=== PATIENT | female | born 1975 | race Caucasian/White ===

== ENCOUNTER 2021-07-16 14:10 | Outpatient (CLI) | payer OTHER, SELFPAY ==
[2021-07-16 16:57] LABS: Basophils # 0.1 10^3/uL (0.0-0.1); Basophils % 0.8 %; Eosinophils # 0.3 10^3/uL (0.0-0.8); Eosinophils % 2.4 %; Hematocrit 40.5 % (37.0-47.0); Hemoglobin 12.7 g/dL (11.5-15.3); Lymphocytes # 4.4 10^3/uL (0.8-4.8); Mean Corpuscular HGB Conc 31.4 g/dL (30.0-36.0); Mean Corpuscular Hemoglobin 26.6 pg (28.0-34.0); Mean Corpuscular Volume 84.9 fl (81-99); Mean Platelet Volume 10.8 fL (7.4-10.4); Monocytes # 0.8 10^3/uL (0.2-0.9); Monocytes % 6.8 %; Neutrophils # 6.24 10^3/uL (1.8-7.7); Neutrophils % 52.7 %; Nucleated Red Blood Cells % 0 %; Platelet Count 252 10^3/cmm (130-400); Red Blood Count 4.77 10^6/uL (4.1-5.3); Red Cell Distribution Width 14.2 % (12.1-15.1); White Blood Count 11.9 10^3/uL (4.0-10.0)
[2021-07-16 16:58] LABS: Reticulocyte % 1.6 % (0.5-2.0)
[2021-07-16 17:04] LABS: LAB Peripheral Smear Sent for Review
[2021-07-16 17:34] LABS: Erythrocyte Sedimentation Rate 24 mm/hr (0-15)
[2021-07-16 17:41] LABS: Alanine Aminotransferase 39 U/L (0-33); Albumin Level 4.3 g/dL (3.5-5.2); Alkaline Phosphatase 122 IU/L (35-105); Anion Gap 12.1 (5-19); Aspartate Amino Transferase 36 U/L (0-32); Blood Urea Nitrogen 9 mg/dL (6-20); Calcium 8.5 mg/dL (8.5-10.5); Carbon Dioxide 23 mmol/L (22-29); Chloride 105 mmol/L (98-107); Globulin 2.8 g/dL (1.3-4.6); Glomerular Filtration Rate 78.3 mL/min (90-130); Glucose 107 mg/dL (65-115); Lactate Dehydrogenase 150 U/L (135-214); Osmolality Calculated 281 mOsm/kg (285-295); Potassium 4.1 mmol/L (3.5-5.1); Sodium 136 mmol/L (136-145); Thyroid Stimulating Hormone 2.68 uIU/mL (0.27-4.20); Total Bilirubin 0.2 mg/dL (0.15-1.2); Total Protein 7.1 g/dL (6.6-8.7)
[2021-07-16 17:43] LABS: Folate Level 15.7 ng/mL (4.8-37.3)
--- NOTE | 2021-07-16 17:46 | ONC CON_ITS ---
Dr. Shearer New Patient Note Patient: Ibeth Palacios Unit #: [id number]: [id number] Dicatated By: Aron Shearer M.D.Date of Visit: Jul 16, 2021 Onc MED New Patient/Consult Referring Physician: Kelli Patel A.P.N. Chief Complaint: Anemia. History of Present Illness: This is a 45-year-old woman with a mild anemia. She has multiple medical illnesses and she is disabled. She receives her primary care through the [facility]. She had recently relocated to this area from [place]. She had an initial visit at the [facility] with Kelli Patel on 05/20/2021. Her laboratory studies at that time included a CBC which showed hemoglobin low at 10.8 g with hematocrit 35.2%. The red cell indices were normal. The white blood cell count was 9500 and the platelet count was 221,000. Her comprehensive metabolic profile showed normal renal function, and the bilirubin and liver enzymes also were normal. She complains that she has been fatigued a lot, to the point of exhaustion. She has been having to sleep more and to take more naps. She has had limited activity related to her fibromyalgia pain, but over the past few months or has been further decline in her activity tolerance. Her ECOG score is 1. Her appetite is variable. She has had a weight gain of 15 pounds. She does not have fever, night sweats, or hot flashes. She says that she tends to feel more cold then hot. In particular, her extremities have been colder. She also was told by her boyfriend that during recent intercourse her lips turned blue. She has chest congestion, cough, and shortness of breath associated with allergies and asthma. She also has been having more trouble catching her breath with activity. She says she has been getting short of breath just tying her shoes. She has had some chest discomfort. She has had suspected cardiac arrhythmia based on episodes of dizziness/lightheadedness, weakness, and tingling in her fingers. She has postprandial nausea and she has acid reflux. She has chronic constipation. She has not recently been aware of any blood in the stool. She has some hesitancy with urination and incomplete bladder emptying. She is still menstruating, but her periods now are getting a little irregular. She has generalized fibromyalgia pain and she has chronic back pain. Recently she has been having more joint pain, mainly in the ankles, knees, and hands. She has chronic migraine, for which she has been getting Botox injections every 3 months. She has anxiety and she has chronic insomnia. She has not been feeling depressed, though. Past Medical History: Her medical history includes allergic rhinitis, anxiety/depression, asthma, borderline personality disorder, chronic migraine, fibromyalgia, gastroesophageal reflux disease, history of cardiac arrhythmia, hyperlipidemia, hypertension, inflammatory spondylopathy, irritable bowel syndrome, restless leg syndrome, sciatica, and vitamin D deficiency. Past Surgical History: Her surgical/procedural history includes dental surgery which included bone grafting, placement of loop recorder in 2019, bladder repair with mesh implant in 2018, excision of benign sweat gland tumor in 2018, and cardiac ablation procedure in 2016. Medications: Acetaminophen 1 Tablet (of 500 mg) Oral b.i.d. PRN, Albuterol Sulfate HFA 2 Puff(s) (of 108 (90 base) mcg/act) Aerosol, solution Inhalation four times a day PRN, B-12 1 Tablet (of 1000 mcg) Oral daily, Benadryl Allergy 1 Capsule (of 25 mg) Oral at bedtime, Botox Injection, Budesonide-Formoterol Fumarate 1 Puff(s) (of 80-4.5 mcg/act) Aerosol Inhalation b.i.d., Cyclobenzaprine HCl 1 Tablet (of 10 mg) Oral b.i.d. PRN, Diclofenac Sodium 4 g (of 1 %) Gel (jelly) Topical four times a day PRN, Fish Oil 2 Capsule (of 500 mg) Oral daily, Fluticasone Propionate 2 Delphi(s) (of 50 mcg/act) Suspension Nasal daily, Fluticasone-Salmeterol 1 Puff(s) (of 250-50 mcg/dose) Aerosol Powder, Breath Activated Inhalation b.i.d., Gabapentin 1 Tablet (of 600 mg) Oral t.i.d., [employer]ys Extra Strength Pack Oral PRN, Ibuprofen 4 Tablet (of 200 mg) Oral PRN, Iron (Ferrous Sulfate) (325 (65 fe) mg) Tablet Oral daily, Loratadine 1 Tablet (of 10 mg) Oral daily, Melatonin Tablet Oral PRN, Meloxicam (15 mg) Tablet Oral daily, Montelukast Sodium 1 Tablet (of 10 mg) Oral at bedtime, Mucus DM Tablet SR 12 HR Oral PRN, Omeprazole (20 mg) Tablet, enteric coated Oral b.i.d., Promethazine HCl 1 Tablet (of 25 mg) Oral t.i.d. PRN, Propranolol HCl 1 Capsule (of 80 mg) Tablet Oral daily, Rosuvastatin Calcium 0.5 Tablet (of 40 mg) Oral daily, SUMAtriptan Succinate 1 Tablet (of 100 mg) Oral b.i.d. PRN, Topiramate 1 Tablet (of 100 mg) Oral at bedtime, Vitamin C (1000 mg) Tablet Oral daily, Wixela Inhub 1 Inhalation (of 250-50 mcg/dose) Aerosol Powder, Breath Activated Inhalation b.i.d., Zinc (50 mg) Tablet Oral daily, ZyrTEC Allergy (10 mg) Tablet Oral daily Allergies: Shellfish and Surgical glue. Social History: Ms. Palacios is . She is disabled. She had smoked off and on since age 14, up to a pack to 1-1/2 packs of cigarettes daily. She quit smoking in March 2020. She has had just occasional alcohol use. Family History: Father at age 69 with complications of alcoholism. Mother is still living at age 76. She has diabetes. A maternal uncle with complications of diabetes and another maternal uncle has diabetes and coronary artery disease. A brother at age 48 with AIDS and a sister at age 56 with complications of cerebral palsy. Another sister has undergone bone marrow transplant for leukemia. A paternal aunt had ovarian cancer and a niece has been treated for rhabdomyosarcoma. Her maternal grandfather had non-Hodgkin's lymphoma and her paternal grandfather had laryngeal cancer. Review Of Symptoms: Constitutional - She has been fatigued a lot, to the point of exhaustion. Her activity had previously been limited by her fibromyalgia, and that has further declined over the past several months. Appetite has been variable. She has had a weight gain of 15 pounds. She has not had fever, night sweats, or hot flashes. She says she tends to feel more cold than hot. ECOG score is one, Eyes - Her vision has been more blurry lately, ENMT - No hearing loss, but she has tinnitus. She has allergy related sinus symptoms. No mouth sores. No sore throat or difficulty swallowing, Hematologic/Lymphatic - No abnormal bruising or bleeding, Respiratory - She has chest congestion, cough, and shortness of breath. No pleuritic pain or hemoptysis, Cardiovascular - She has had some chest discomfort. She does not complain of palpitations, but she does have suspected cardiac arrhythmia based on other symptoms including dizziness, weakness, and tingling, Gastrointestinal - She has postprandial nausea and she has acid reflux. She has chronic constipation. She has not recently been aware of any blood in the stool. Her most recent colonoscopy was a couple of years ago and her most recent EGD was prior to that, Genitourinary (F) - No dysuria or hematuria. She has hesitancy with urination and she has incomplete emptying. She has some incontinence, Musculoskeletal - She has generalized fibromyalgia pain and chronic back pain. Lately her joint pain has been worse including the ankles, knees, and hands, Integumentary - No skin rash or other skin changes, Neurologic - She has chronic migraine. She has episodes of dizziness/lightheadedness and she has tingling in her fingers, Psychiatric - She has some anxiety. She says she is currently not having significant depression. She has chronic insomnia. Vital Signs: Performed on Jul 16, 2021 16:18: 5, 4, 33.48 (HIGH), 2.13 sq.m, 68 in, 98 %, 90 /min, 16 /min, 125/80 mm(hg), 97.6 F (LOW), and 220.2 lbs (HIGH). Physical Examination: Constitutional - She does not appear acutely ill, Eyes - Sclerae nonicteric. Conjunctivae clear, ENMT - No lesions noted in the oral cavity, Neck - No mass or thyromegaly, Hematologic/Lymphatic - No cervical, clavicular, or axillary adenopathy, Respiratory - Lungs sound clear with good air movement bilaterally, Cardiovascular - Heart rhythm is regular. There is no murmur, gallop, or rub noted, Abdomen - Soft. Liver and spleen are not enlarged. There is no abdominal mass or ascites noted and there is no inguinal adenopathy, Back/Spine - There is mild tenderness throughout the spine, Extremities - No edema. She has palpable radial and dorsalis pedis pulses bilaterally, Integumentary - No rashes. No suspicious skin lesions noted, Neurologic - No focal neurologic deficits noted. Problem List: 1. Mild anemia. Etiology is uncertain. 2. She has severe fatigue, disproportionate to the severity of the anemia. 3. Hypertension. 4. Hyperlipidemia. 5. Allergic rhinitis. 6. Asthma. 7. History of cardiac arrhythmia. 8. GERD. 9. Irritable bowel syndrome. 10. Fibromyalgia. 11. Sciatica. 12. Chronic migraine. 13. Anxiety/depression. Problems Addressed with this Encounter and Plan: Patient with mild anemia. The cause is uncertain, but she has severe fatigue, which is disproportionate to the severity of the anemia. She will have additional laboratory studies today to include CBC, comprehensive metabolic profile, reticulocyte count, LDH and haptoglobin levels, sed rate, serum iron studies and ferritin, B12 and folate levels, TSH level, and a cryoglobulin assay. I we will review the blood smear. She will have further evaluation as indicated. Signed By: Aron Shearer M.D. <<Signature on File>>
[2021-07-16 19:04] LABS: Ferritin 41 ng/mL (15-150); Iron 70 ug/dL (37-145); Percent Saturation 21.6 % (20-50); Total Iron Binding Capacity 323 mcg/dl; Unsaturated Iron Binding 253 ug/dL (112-347)
[2021-07-16 19:19] LABS: Vitamin B12 1056 pg/mL (232-1245)
== END 2021-07-16 14:11 | disposition home or self-care (01) ==
PROVIDERS: Visit Provider Internal Medicine Medical Oncology
DX: D64.9 Anemia, unspecified (principal); I10 Essential (primary) hypertension; E78.5 Hyperlipidemia, unspecified; F41.9 Anxiety disorder, unspecified; F32.A Depression, unspecified; K21.9 Gastro-esophageal reflux disease without esophagitis; J45.909 Unspecified asthma, uncomplicated; Z79.899 Other long term (current) drug therapy
CPT/HCPCS: 36415; 80053; 82595; 82607; 82728; 82746; 83010; 83540; 83550; 83615; 84443; 85025; 85045; 85651; 99204

== ENCOUNTER 2021-08-21 08:59 | Outpatient (CLI) | payer OTHER, SELFPAY ==
[2021-08-21 09:38] LABS: Basophils # 0.1 10^3/uL (0.0-0.1); Basophils % 0.9 %; Eosinophils # 0.3 10^3/uL (0.0-0.8); Eosinophils % 2.6 %; Hematocrit 35.6 % (37.0-47.0); Hemoglobin 11.3 g/dL (11.5-15.3); Lymphocytes # 4.1 10^3/uL (0.8-4.8); Lymphocytes % 41.9 %; Mean Corpuscular HGB Conc 31.7 g/dL (30.0-36.0); Mean Corpuscular Hemoglobin 27.2 pg (28.0-34.0); Mean Corpuscular Volume 85.6 fl (81-99); Mean Platelet Volume 10.1 fL (7.4-10.4); Monocytes # 0.6 10^3/uL (0.2-0.9); Monocytes % 6.2 %; Neutrophils # 4.75 10^3/uL (1.8-7.7); Neutrophils % 48.1 %; Nucleated Red Blood Cells % 0 %; Platelet Count 217 10^3/cmm (130-400); Red Blood Count 4.16 10^6/uL (4.1-5.3); Red Cell Distribution Width 14.3 % (12.1-15.1); White Blood Count 9.9 10^3/uL (4.0-10.0)
[2021-08-21 10:04] LABS: Alanine Aminotransferase 47 U/L (0-33); Albumin Level 3.9 g/dL (3.5-5.2); Alkaline Phosphatase 132 IU/L (35-105); Anion Gap 14.8 (5-19); Aspartate Amino Transferase 29 U/L (0-32); Blood Urea Nitrogen 11 mg/dL (6-20); Calcium 8.7 mg/dL (8.5-10.5); Carbon Dioxide 21 mmol/L (22-29); Chloride 105 mmol/L (98-107); Ferritin 33 ng/mL (15-150); Globulin 2.9 g/dL (1.3-4.6); Glomerular Filtration Rate 77.9 mL/min (90-130); Glucose 118 mg/dL (65-115); Iron 47 ug/dL (37-145); Osmolality Calculated 284 mOsm/kg (285-295); Percent Saturation 16.6 % (20-50); Potassium 3.8 mmol/L (3.5-5.1); Sodium 137 mmol/L (136-145); Total Bilirubin 0.2 mg/dL (0.15-1.2); Total Iron Binding Capacity 283 mcg/dl; Total Protein 6.8 g/dL (6.6-8.7); Unsaturated Iron Binding 236 ug/dL (112-347)
[2021-08-21 10:18] LABS: Erythrocyte Sedimentation Rate 7 mm/hr (0-15)
--- NOTE | 2021-08-23 14:55 | ONC FU_ITS ---
Nitza Cisneros Progress Note Patient: Ibeth Palacios Unit #: [id number]: [id number] Dicatated By: Nitza Cisneros N.P.Date of Visit:Aug 21, 2021 Onc MED Follow-up/Prog Note Chief Complaint: Anemia. History of Present Illness: This is a 45-year-old woman with a mild anemia. She has multiple medical illnesses and she is disabled. She receives her primary care through the [facility]. She had recently relocated to this area from [place]. She had an initial visit at the [facility] with Kelli Patel on 05/20/2021. Her laboratory studies at that time included a CBC which showed hemoglobin low at 10.8 g with hematocrit 35.2%. The red cell indices were normal. The white blood cell count was 9500 and the platelet count was 221,000. Her comprehensive metabolic profile showed normal renal function, and the bilirubin and liver enzymes also were normal. She complains that she has been fatigued a lot, to the point of exhaustion. She has been having to sleep more and to take more naps. She has had limited activity related to her fibromyalgia pain, but over the past few months or has been further decline in her activity tolerance. Her ECOG score is 1. Her appetite is variable. She has had a weight gain of 15 pounds. She does not have fever, night sweats, or hot flashes. She says that she tends to feel more cold then hot. In particular, her extremities have been colder. She also was told by her boyfriend that during recent intercourse her lips turned blue. She has chest congestion, cough, and shortness of breath associated with allergies and asthma. She also has been having more trouble catching her breath with activity. She says she has been getting short of breath just tying her shoes. She has had some chest discomfort. She has had suspected cardiac arrhythmia based on episodes of dizziness/lightheadedness, weakness, and tingling in her fingers. She has postprandial nausea and she has acid reflux. She has chronic constipation. She has not recently been aware of any blood in the stool. She has some hesitancy with urination and incomplete bladder emptying. She is still menstruating, but her periods now are getting a little irregular. She has generalized fibromyalgia pain and she has chronic back pain. Recently she has been having more joint pain, mainly in the ankles, knees, and hands. She has chronic migraine, for which she has been getting Botox injections every 3 months. She has anxiety and she has chronic insomnia. She has not been feeling depressed, though. Patient presents today for follow-up. She states that she continues to have some fatigue. Her appetite has been good. She denies fever, chills, night sweats. No shortness of breath, cough, chest pain. She denies blood in her stool. No problems with diarrhea or constipation. Her menstrual cycles have been irregular and they are usually heavy for 2 or 3 days. She denies any urinary symptoms. She has chronic joint and bone pain. She suffers from fibromyalgia. No numbness or tingling. She has been tolerating her iron and states she has been taking it as prescribed once a day. Review Of Symptoms: see above. Past Medical History: Allergic rhinitis Anxiety/depression Asthma Borderline personality disorder Chronic migraine Fibromyalgia Gastroesophageal reflux disease History of cardiac arrhythmia Hyperlipidemia Hypertension Inflammatory spondylopathy Irritable bowel syndrome Restless leg syndrome Sciatica Vitamin D deficiency Past Surgical History: Dental surgery which included bone grafting Placement of loop recorder in 2019 Bladder repair with mesh implant in 2018 Excision of benign sweat gland tumor in 2018 Cardiac ablation procedure in 2016 Allergies: Shellfish and Surgical glue . Medications: Acetaminophen 1 Tablet (of 500 mg) Oral b.i.d. PRN Albuterol Sulfate HFA 2 Puff(s) (of 108 (90 base) mcg/act) Aerosol, solution Inhalation four times a day PRN B-12 1 Tablet (of 1000 mcg) Oral daily Benadryl Allergy 1 Capsule (of 25 mg) Oral at bedtime Botox Injection Budesonide-Formoterol Fumarate 1 Puff(s) (of 80-4.5 mcg/act) Aerosol Inhalation b.i.d. Cyclobenzaprine HCl 1 Tablet (of 10 mg) Oral b.i.d. PRN Diclofenac Sodium 4 g (of 1 %) Gel (jelly) Topical four times a day PRN Fish Oil 2 Capsule (of 500 mg) Oral daily Fluticasone Propionate 2 Amlin(s) (of 50 mcg/act) Suspension Nasal daily Fluticasone-Salmeterol 1 Puff(s) (of 250-50 mcg/dose) Aerosol Powder, Breath Activated Inhalation b.i.d. Gabapentin 1 Tablet (of 600 mg) Oral t.i.d. [employer] Extra Strength Pack Oral PRN Ibuprofen 4 Tablet (of 200 mg) Oral PRN Iron (Ferrous Sulfate) (325 (65 fe) mg) Tablet Oral daily Loratadine 1 Tablet (of 10 mg) Oral daily Melatonin Tablet Oral PRN Meloxicam (15 mg) Tablet Oral daily Montelukast Sodium 1 Tablet (of 10 mg) Oral at bedtime Mucus DM Tablet SR 12 HR Oral PRN Omeprazole (20 mg) Tablet, enteric coated Oral b.i.d. Promethazine HCl 1 Tablet (of 25 mg) Oral t.i.d. PRN Propranolol HCl 1 Capsule (of 80 mg) Tablet Oral daily Rosuvastatin Calcium 0.5 Tablet (of 40 mg) Oral daily SUMAtriptan Succinate 1 Tablet (of 100 mg) Oral b.i.d. PRN Topiramate 1 Tablet (of 100 mg) Oral at bedtime Vitamin C (1000 mg) Tablet Oral daily Wixela Inhub 1 Inhalation (of 250-50 mcg/dose) Aerosol Powder, Breath Activated Inhalation b.i.d. Zinc (50 mg) Tablet Oral daily ZyrTEC Allergy (10 mg) Tablet Oral daily Family History: Father at age 69 with complications of alcoholism. Mother is still living at age 76. She has diabetes. A maternal uncle with complications of diabetes and another maternal uncle has diabetes and coronary artery disease. A brother at age 48 with AIDS and a sister at age 56 with complications of cerebral palsy. Another sister has undergone bone marrow transplant for leukemia. A paternal aunt had ovarian cancer and a niece has been treated for rhabdomyosarcoma. Her maternal grandfather had non-Hodgkin's lymphoma and her paternal grandfather had laryngeal cancer. Social History: Ms. Suzanne is single. Ms. Palacios no longer smokes. She drinks occasionally. Ms. 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 She is disabled. She had smoked off and on since age 14, up to a pack to 1-1/2 packs of cigarettes daily. She quit smoking in March 2020. She has had just occasional alcohol use. Physical Examination: Performed on Aug 21, 2021 11:03: Height - 68.00 in, Weight - 232.2 lbs (HIGH), BSA - 2.18 sq.m, BMI - 35.31 (HIGH), Temperature - 96.5 F (LOW), Pulse - 80 /min, Respiration - 16 /min, BP - 124/82 mm(hg), O2 Sat - 99 %, Pain - 5, and Fatigue - 7. Performance Status: 1 - No physically strenuous activity, but ambulatory and able to carry out light or sedentary work (e.g. office work, light house work). (ECOG) Constitutional Alert, cooperative, oriented. Mood and affect appropriate. Appears close to chronological age. Well nourished. Well developed. Head Normocephalic; no scars. Eyes Conjunctivae and sclerae are clear and without icterus. Pupils are reactive and equal. Respiratory Lungs are clear to auscultation without rhonchi or wheezing. Cardiovascular Regular rate and rhythm of heart without murmurs, gallops or rubs. Abdomen Non-tender, non-distended, no masses, ascites or hepatosplenomegaly. Good bowel sounds. No guarding or rebound tenderness. Extremities No edema Musculoskeletal No tenderness or swelling, normal range of motion without obvious weakness. Psychiatric Alert and oriented times three. Coherent speech. Verbalizes understanding of our discussions today. Laboratory: Test performed on Aug 21, 2021 09:23 Ferritin 33 ng/mL Iron 47 mcg/dL Sodium 137 mmol/L Iron Binding Capacity (TIBC) 283 mcg/dl Potassium 3.8 mmol/L % Iron Saturation 16.6 % Chloride 105 mmol/L CO2 21 mmol/L UIBC 236 mcg/dL Anion Gap 14.8 BUN 11 mg/dL Creatinine 0.8 mg/dL Cr Clearance (Est) 149.21 mL/min eGFR 77.9 mL/min Glucose 118 mg/dL Osmolality - Calculated 284 mOsm/kg Calcium 8.7 mg/dL Protein, Total 6.8 g/dL Albumin 3.9 g/dL Globulin 2.9 g/dL Bilirubin, Total 0.2 mg/dL ALT (SGPT) 47 U/L AST (SGOT) 29 U/L Alkaline Phosphatase 132 IU/L ESR (Sed Rate) 7 mm/hr WBC 9.9 10 3/uL RBC 4.16 10 6/uL HGB 11.3 g/dL HCT 35.6 % MCV 85.6 fl MCH 27.2 pg MCHC 31.7 g/dL RDW 14.3 % Platelet Count 217 10 3/cmm MPV 10.1 fL Neutrophils 4.75 10 3/uL Lymphocytes 4.1 10 3/uL Monocytes 0.6 10 3/uL Eosinophils 0.3 10 3/uL Basophils 0.1 10 3/uL Neutrophil % 48.1 % Lymphocyte % 41.9 % Monocyte % 6.2 % Eosinophil % 2.6 % Basophils % 0.9 % NRBC % 0 % Test performed on Jul 16, 2021 16:21 Folate, Serum 15.7 ng/mL LDH (Total) 150 U/L TSH 2.68 uIU/mL Vitamin B12 1056 pg/mL Retic Count % 1.6 % Impression: 1. Mild anemia. Etiology is uncertain. 2. She has severe fatigue, disproportionate to the severity of the anemia. 3. Hypertension. 4. Hyperlipidemia. 5. Allergic rhinitis. 6. Asthma. 7. History of cardiac arrhythmia. 8. GERD. 9. Irritable bowel syndrome. 10. Fibromyalgia. 11. Sciatica. 12. Chronic migraine. 13. Anxiety/depression. Plan: Patient presents today for follow-up. She has been taking oral iron daily. Her hemoglobin is 11.3 compared to 12.7 at last visit, hematocrit 35.6 compared to 40.5 at last visit, your iron saturation is 16.6 down from 21.6, ferritin at 33 down from 41, iron at 47 down from 70 at last visit. Her vitamin B12 was checked at last visit and it was 1056. Her TSH was 2.68. There has been a slight decrease in her iron studies. Her last menstrual cycle was last week and was heavier than normal. It is suspected that this may be contributing to her anemia. Increase her iron to 2 tablets daily and return to clinic in 1 month with CBC CMP and iron studies. Signed By: Nitza Cisneros N.P. <<Signature on File>>
== END 2021-08-21 09:00 | disposition home or self-care (01) ==
LOC: ONCMED 09:05
PROVIDERS: Internal Medicine Medical Oncology; Visit Provider Nurse Practitioner Family
DX: D64.9 Anemia, unspecified (principal); I10 Essential (primary) hypertension; E78.5 Hyperlipidemia, unspecified; J45.909 Unspecified asthma, uncomplicated; K21.9 Gastro-esophageal reflux disease without esophagitis; F41.9 Anxiety disorder, unspecified; F32.A Depression, unspecified; K58.9 Irritable bowel syndrome, unspecified; J30.9 Allergic rhinitis, unspecified; R53.83 Other fatigue; Z79.899 Other long term (current) drug therapy
CPT/HCPCS: 36415; 80053; 82728; 83540; 83550; 85025; 85651; 99214

== ENCOUNTER 2021-09-22 12:05 | Outpatient (CLI) | payer OTHER, SELFPAY ==
[2021-09-22 12:34] LABS: Basophils # 0.1 10^3/uL (0.0-0.1); Basophils % 0.9 %; Eosinophils # 0.2 10^3/uL (0.0-0.8); Eosinophils % 2.4 %; Hematocrit 37.2 % (37.0-47.0); Hemoglobin 11.7 g/dL (11.5-15.3); Lymphocytes # 3.9 10^3/uL (0.8-4.8); Lymphocytes % 40.4 %; Mean Corpuscular HGB Conc 31.5 g/dL (30.0-36.0); Mean Corpuscular Hemoglobin 27.2 pg (28.0-34.0); Mean Corpuscular Volume 86.5 fl (81-99); Mean Platelet Volume 10.1 fL (7.4-10.4); Monocytes # 0.8 10^3/uL (0.2-0.9); Monocytes % 8.1 %; Neutrophils # 4.59 10^3/uL (1.8-7.7); Nucleated Red Blood Cells % 0 %; Platelet Count 195 10^3/cmm (130-400); Red Cell Distribution Width 14.2 % (12.1-15.1); White Blood Count 9.6 10^3/uL (4.0-10.0)
[2021-09-22 12:51] LABS: Alanine Aminotransferase 64 U/L (0-33); Albumin Level 3.9 g/dL (3.5-5.2); Alkaline Phosphatase 137 IU/L (35-105); Anion Gap 13.3 (5-19); Aspartate Amino Transferase 42 U/L (0-32); Blood Urea Nitrogen 12 mg/dL (6-20); Calcium 8.9 mg/dL (8.5-10.5); Carbon Dioxide 22 mmol/L (22-29); Chloride 107 mmol/L (98-107); Ferritin 47 ng/mL (15-150); Globulin 2.9 g/dL (1.3-4.6); Glomerular Filtration Rate 77.9 mL/min (90-130); Glucose 126 mg/dL (65-115); Iron 38 ug/dL (37-145); Osmolality Calculated 287 mOsm/kg (285-295); Percent Saturation 14.7 % (20-50); Potassium 4.3 mmol/L (3.5-5.1); Sodium 138 mmol/L (136-145); Total Bilirubin 0.2 mg/dL (0.15-1.2); Total Iron Binding Capacity 258 mcg/dl; Total Protein 6.8 g/dL (6.6-8.7); Unsaturated Iron Binding 220 ug/dL (112-347)
--- NOTE | 2021-09-22 15:10 | ONC FU_ITS ---
Nitza Cisneros Progress Note Patient: Ibeth Palacios Unit #: [id number]: 1975 Dicatated By: Nitza Cisneros N.P.Date of Visit:Sep 22, 2021 Onc MED Follow-up/Prog Note Chief Complaint: Anemia. History of Present Illness: This is a 45-year-old woman with a mild anemia. She has multiple medical illnesses and she is disabled. She receives her primary care through the [facility]. She had recently relocated to this area from [place]. She had an initial visit at the [facility] with Kelli Patel on 05/20/2021. Her laboratory studies at that time included a CBC which showed hemoglobin low at 10.8 g with hematocrit 35.2%. The red cell indices were normal. The white blood cell count was 9500 and the platelet count was 221,000. Her comprehensive metabolic profile showed normal renal function, and the bilirubin and liver enzymes also were normal. She complains that she has been fatigued a lot, to the point of exhaustion. She has been having to sleep more and to take more naps. She has had limited activity related to her fibromyalgia pain, but over the past few months or has been further decline in her activity tolerance. Her ECOG score is 1. Her appetite is variable. She has had a weight gain of 15 pounds. She does not have fever, night sweats, or hot flashes. She says that she tends to feel more cold then hot. In particular, her extremities have been colder. She also was told by her boyfriend that during recent intercourse her lips turned blue. She has chest congestion, cough, and shortness of breath associated with allergies and asthma. She also has been having more trouble catching her breath with activity. She says she has been getting short of breath just tying her shoes. She has had some chest discomfort. She has had suspected cardiac arrhythmia based on episodes of dizziness/lightheadedness, weakness, and tingling in her fingers. She has postprandial nausea and she has acid reflux. She has chronic constipation. She has not recently been aware of any blood in the stool. She has some hesitancy with urination and incomplete bladder emptying. She is still menstruating, but her periods now are getting a little irregular. She has generalized fibromyalgia pain and she has chronic back pain. Recently she has been having more joint pain, mainly in the ankles, knees, and hands. She has chronic migraine, for which she has been getting Botox injections every 3 months. She has anxiety and she has chronic insomnia. She has not been feeling depressed, though. Patient presents today for follow-up. She states that she continues to have extreme fatigue. Her appetite is good. She denies fever, chills, night sweats. No sinus drainage or mouth sores. She has shortness of breath with exertion. She denies cough or chest pain. No GI or problems. She denies joint or bone pain. She does have leg cramps on occasion and she has a history of migraine headaches. No numbness or paresthesias. Review Of Symptoms:Review of Systems is not available for this patient. Past Medical History: Allergic rhinitis Anxiety/depression Asthma Borderline personality disorder Chronic migraine Fibromyalgia Gastroesophageal reflux disease History of cardiac arrhythmia Hyperlipidemia Hypertension Inflammatory spondylopathy Irritable bowel syndrome Restless leg syndrome Sciatica Vitamin D deficiency Past Surgical History: Dental surgery which included bone grafting Placement of loop recorder in 2019 Bladder repair with mesh implant in 2018 Excision of benign sweat gland tumor in 2018 Cardiac ablation procedure in 2016 Allergies: Shellfish and Surgical glue . Medications: Acetaminophen 1 Tablet (of 500 mg) Oral b.i.d. PRN Albuterol Sulfate HFA 2 Puff(s) (of 108 (90 base) mcg/act) Aerosol, solution Inhalation four times a day PRN B-12 1 Tablet (of 1000 mcg) Oral daily Benadryl Allergy 1 Capsule (of 25 mg) Oral at bedtime Botox Injection Budesonide-Formoterol Fumarate 1 Puff(s) (of 80-4.5 mcg/act) Aerosol Inhalation b.i.d. Cyclobenzaprine HCl 1 Tablet (of 10 mg) Oral b.i.d. PRN Diclofenac Sodium 4 g (of 1 %) Gel (jelly) Topical four times a day PRN Fish Oil 2 Capsule (of 500 mg) Oral daily Fluticasone Propionate 2 Roosevelt(s) (of 50 mcg/act) Suspension Nasal daily Fluticasone-Salmeterol 1 Puff(s) (of 250-50 mcg/dose) Aerosol Powder, Breath Activated Inhalation b.i.d. Gabapentin 1 Tablet (of 600 mg) Oral t.i.d. GoodVideoCare Extra Strength Pack Oral PRN Ibuprofen 4 Tablet (of 200 mg) Oral PRN Iron (Ferrous Sulfate) (325 (65 fe) mg) Tablet Oral daily Loratadine 1 Tablet (of 10 mg) Oral daily Melatonin Tablet Oral PRN Meloxicam (15 mg) Tablet Oral daily Montelukast Sodium 1 Tablet (of 10 mg) Oral at bedtime Mucus DM Tablet SR 12 HR Oral PRN Omeprazole (20 mg) Tablet, enteric coated Oral b.i.d. Promethazine HCl 1 Tablet (of 25 mg) Oral t.i.d. PRN Propranolol HCl 1 Capsule (of 80 mg) Tablet Oral daily Rosuvastatin Calcium 0.5 Tablet (of 40 mg) Oral daily SUMAtriptan Succinate 1 Tablet (of 100 mg) Oral b.i.d. PRN Topiramate 1 Tablet (of 100 mg) Oral at bedtime Vitamin C (1000 mg) Tablet Oral daily Wixela Inhub 1 Inhalation (of 250-50 mcg/dose) Aerosol Powder, Breath Activated Inhalation b.i.d. Zinc (50 mg) Tablet Oral daily ZyrTEC Allergy (10 mg) Tablet Oral daily Family History: Father at age 69 with complications of alcoholism. Mother is still living at age 76. She has diabetes. A maternal uncle with complications of diabetes and another maternal uncle has diabetes and coronary artery disease. A brother at age 48 with AIDS and a sister at age 56 with complications of cerebral palsy. Another sister has undergone bone marrow transplant for leukemia. A paternal aunt had ovarian cancer and a niece has been treated for rhabdomyosarcoma. Her maternal grandfather had non-Hodgkin's lymphoma and her paternal grandfather had laryngeal cancer. Social History: Ms. Palacios is single. Ms. Palacios no longer smokes. She drinks occasionally. Ms. Palacios reports contact with the following hazardous materials: [facility]. She is disabled. She had smoked off and on since age 14, up to a pack to 1-1/2 packs of cigarettes daily. She quit smoking in March 2020. She has had just occasional alcohol use. Physical Examination: Performed on Sep 22, 2021 14:06: Height - 68.00 in, Weight - 234.8 lbs (HIGH), BSA - 2.19 sq.m, BMI - 35.70 (HIGH), Temperature - 98.6 F, Pulse - 79 /min, Respiration - 16 /min, BP - 138/86 mm(hg), O2 Sat - 99 %, Pain - 4, and Fatigue - 6. Performance Status: 1 - No physically strenuous activity, but ambulatory and able to carry out light or sedentary work (e.g. office work, light house work). (ECOG) Constitutional Alert, cooperative, oriented. Mood and affect appropriate. Appears close to chronological age. Well nourished. Well developed. Head Normocephalic; no scars. Respiratory Lungs are clear to auscultation without rhonchi or wheezing. Cardiovascular Regular rate and rhythm of heart without murmurs, gallops or rubs. Abdomen Non-tender, non-distended, no masses, ascites or hepatosplenomegaly. Good bowel sounds. No guarding or rebound tenderness. Extremities No visible deformities, no cyanosis, clubbing or edema. Pulses 3+ and equal bilaterally. Musculoskeletal No tenderness or swelling, normal range of motion without obvious weakness. Psychiatric Alert and oriented times three. Coherent speech. Verbalizes understanding of our discussions today. Laboratory: Test performed on Sep 22, 2021 12:22 Ferritin 47 ng/mL Iron 38 mcg/dL Sodium 138 mmol/L Iron Binding Capacity (TIBC) 258 mcg/dl Potassium 4.3 mmol/L % Iron Saturation 14.7 % Chloride 107 mmol/L CO2 22 mmol/L UIBC 220 mcg/dL Anion Gap 13.3 BUN 12 mg/dL Creatinine 0.8 mg/dL Cr Clearance (Est) 150.88 mL/min eGFR 77.9 mL/min Glucose 126 mg/dL Osmolality - Calculated 287 mOsm/kg Calcium 8.9 mg/dL Protein, Total 6.8 g/dL Albumin 3.9 g/dL Globulin 2.9 g/dL Bilirubin, Total 0.2 mg/dL ALT (SGPT) 64 U/L AST (SGOT) 42 U/L Alkaline Phosphatase 137 IU/L WBC 9.6 10 3/uL RBC 4.30 10 6/uL HGB 11.7 g/dL HCT 37.2 % MCV 86.5 fl MCH 27.2 pg MCHC 31.5 g/dL RDW 14.2 % Platelet Count 195 10 3/cmm MPV 10.1 fL Neutrophils 4.59 10 3/uL Lymphocytes 3.9 10 3/uL Monocytes 0.8 10 3/uL Eosinophils 0.2 10 3/uL Basophils 0.1 10 3/uL Neutrophil % 48.0 % Lymphocyte % 40.4 % Monocyte % 8.1 % Eosinophil % 2.4 % Basophils % 0.9 % NRBC % 0 % Test performed on Aug 21, 2021 09:23 ESR (Sed Rate) 7 mm/hr Test performed on Jul 16, 2021 16:21 Folate, Serum 15.7 ng/mL LDH (Total) 150 U/L TSH 2.68 uIU/mL Vitamin B12 1056 pg/mL Retic Count % 1.6 % Impression: 1. Mild anemia. Etiology is uncertain. 2. She has severe fatigue, disproportionate to the severity of the anemia. 3. Hypertension. 4. Hyperlipidemia. 5. Allergic rhinitis. 6. Asthma. 7. History of cardiac arrhythmia. 8. GERD. 9. Irritable bowel syndrome. 10. Fibromyalgia. 11. Sciatica. 12. Chronic migraine. 13. Anxiety/depression. Plan: Labs were reviewed with patient her hemoglobin is within normal limits at 11.7 and hematocrit is 37.2 which is also normal. Her iron is within normal range at 38 and her percent saturation is slightly low at 14.7%. She states she has been taking her iron 2 tablets/day but she cannot notice a difference in her level of fatigue. I am not at that this is because of her fatigue and she has a follow-up appointment with her primary care provider later this week and is going to discuss her level of fatigue with her. She has been having elevated liver enzymes with AST at 42 and the ALT at 64 her alkaline phosphatase is mildly elevated at 137. Explained to patient this could be due to medications that she is currently taking including but not limited to statin drugs. We will continue to monitor for now. If elevation continues may consider an ultrasound of the liver. Patient will return to the clinic in 2 months with CBC, CMP, and iron studies. Signed By: Nitza Cisneros N.P. <<Signature on File>>
== END 2021-09-22 12:06 | disposition home or self-care (01) ==
LOC: ONCMED 12:07
PROVIDERS: Visit Provider Nurse Practitioner Family
DX: D64.9 Anemia, unspecified (principal); R94.5 Abnormal results of liver function studies; I10 Essential (primary) hypertension; Z87.891 Personal history of nicotine dependence; E78.5 Hyperlipidemia, unspecified; J45.909 Unspecified asthma, uncomplicated; Z86.79 Personal history of other diseases of the circulatory system; K21.9 Gastro-esophageal reflux disease without esophagitis; K58.9 Irritable bowel syndrome, unspecified; M79.7 Fibromyalgia; M54.30 Sciatica, unspecified side; G43.709 Chronic migraine without aura, not intractable, without status migrainosus; F41.8 Other specified anxiety disorders
CPT/HCPCS: 36415; 80053; 82728; 83540; 83550; 85025; 99214

== ENCOUNTER 2021-11-04 16:32 | Emergency (ER) | payer OTHER, SELFPAY ==
[2021-11-04 16:50] VITALS: BP 122/85; PULSE 86; RESP 18; TEMP 37.1; O2SAT 97
--- NOTE | 2021-11-04 17:02 | ED_ITS ---
HPI - Extremity Problem General: Chief complaint: Extremity Problem,Nontraumatic Stated complaint: sting on right foot Time Seen by Provider: 11/04/21 17:02 History of Present Illness: 46-year-old female comes in today with complaints of swelling and tenderness to the distal right foot. Patient reports being stung several times by insects over the last week. The last time she had to her right foot 2 days ago. Since then she has had increased swelling and tenderness with some itching and discoloration of the foot. Patient has a history of fibromyalgia, asthma, GERD, anxiety disorder. Associated symptoms: Deny chest pain or fever(s) Review of Systems General: Reports: 10 or more systems reviewed and unremarkable except in HPI and below Const: Denies: fever(s) Card: Denies: chest pain Resp: Denies: dyspnea GI: Denies: nausea Musc: Reports: extremity pain and extremity swelling Skin/Breast: Reports: erythema and new lesions [facility] ED PFSH: Medical History (Updated 11/04/21 @ 18:23 by REY Deras) Asthma Costochondritis Fibromyalgia Surgical History (Updated 04/17/21 @ 14:44 by Simon Raymond MD) History of cardiac radiofrequency ablation (RFA) Female Reproductive History: Date of last menstrual period: 10/15/21 Physical Exam Const: COMMON NORMALS: alert HENMT: COMMON NORMALS: normocephalic HEAD & SCALP: normocephalic Neck/C-Spine: COMMON NORMALS: full ROM Resp: COMMON NORMALS: normal respiratory effort Cardio: COMMON NORMALS: regular rate RATE: regular rate Extremity: RIGHT LOWER EXTREMITY: Yes foot & digits (Areas of abrasion from scratching, swelling, mild ecchymosis) Right foot and digits: Yes inspection, Yes palpation, Yes ROM and Yes neurovascular exam Neuro: SENSORIUM/ORIENTATION: Yes alert Course Vital Signs: Vital signs: Vital Signs Temperature 98.7 F 11/04/21 16:50 Pulse Rate 86 11/04/21 16:50 Respiratory Rate 18 11/04/21 16:50 Blood Pressure 122/85 11/04/21 16:50 Pulse Oximetry 97 11/04/21 16:50 MDM - Extremity (Nontraumatic) Medical Decision Making Patient presents with some swelling and discomfort to the right lower extremity. On exam we note several crusty lesions with surrounding swelling to the foot and ankle area. Mild ecchymosis is noted. Mild erythema is also noted. Vital signs are normal. Differential diagnosis includes local reaction insect bite, DVT, cellulitis, PVD. Ultrasound for DVT was negative. I feel the patient probably most likely has a local reaction to the insect bite. But we will go ahead and cover for secondary infection. Patient be started on Augmentin 1 tablet twice a day for 7 days. Patient was also given some steroids to, help with the swelling. Patient was instructed to try to keep the leg elevated until the swelling resolves. Hydroxyzine was also prescribed to help with itching. Patient reported understanding of care plan and need for follow-up or return to the ER for worsening symptoms. Lab Data Radiology Impressions Venous Duplex 11/04/21 17:07 IMPRESSION: No evidence of deep vein thrombosis. Discharge Plan Discharge Patient Disposition: Home Clinical Impression: Infected insect bite of foot Qualifiers: Encounter type: initial encounter Laterality: right Qualified Code(s): S90.861A - Insect bite (nonvenomous), right foot, initial encounter Condition: Stable Prescriptions: New amoxicillin-pot clavulanate 875-125 mg tablet 1 tab PO BID Qty: 14 0RF hydroxyzine HCl 25 mg tablet 25 mg PO Q6H PRN (Reason: itching) Qty: 14 0RF prednisone 20 mg tablet 20 mg PO BID 5 Days Qty: 10 0RF mupirocin 2 % ointment 1 applic topical BID Qty: 22 0RF Rx Instructions: apply to lesions until healed No Action gabapentin 300 mg capsule 300 mg PO TID 0RF tizanidine 4 mg tablet 4 mg PO TID PRN0RF topiramate 100 mg bhaskar bautista,ER 24hr dose pack 100 mg PO DAILY 0RF montelukast [Singulair] 10 mg tablet 10 mg PO DAILY 0RF loratadine [Claritin] 10 mg tablet 10 mg PO DAILY 0RF promethazine 25 mg tablet 25 mg PO TID PRN0RF omeprazole 20 mg capsule,delayed release(DR/EC) 20 mg PO DAILY 0RF rosuvastatin 40 mg tablet 40 mg PO DAILY 0RF melatonin 3 mg capsule 6 mg PO .hs 0RF propranolol 80 mg capsule,extended release 24 hr 80 mg PO DAILY 0RF meloxicam 15 mg tablet 15 mg PO DAILY 0RF sumatriptan succinate 50 mg tablet See Rx Instructions PO .COMPLEX 0RF Rx Instructions: take 1 tab at onset of headache; if no relief may repeat 1 tab after at least 2 hrs; max = 4 tabs/24 hr PO albuterol sulfate 90 mcg/actuation aerosol powdr breath activated 1 inh inhalation QID 0RF fluticasone propionate [Flonase Allergy Relief] 50 mcg/actuation spray,suspension 1 spray intranasal DAILY 0RF Rx Instructions: administer into each nostril prednisone 20 mg tablet 60 mg PO DAILY Qty: 15 0RF Discharge Orders: Discharge ED (Routine); Ordered 11/04/21 Ordered By: Dariusz Olmedo Discharge Diet: Usual diet Discharge Activity: Increase activity as tolerated Patient Instructions: Cellulitis (ED) Activity Restrictions/Additional Instructions: Home and rest. Elevate foot until swelling resolves. Take antibiotics and steroid as directed. Drink plenty of water with medications. Use hydroxyzine for breakthrough itching. Use mupirocin ointment to each scabbed lesion until healed. Follow-up with primary care in 3 days as needed for recheck. Return to ER for new concerns. 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
--- NOTE | 2021-11-04 17:07 | USR_ITS ---
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 No HX dvt. This exam is negative for dvt in rle; Additional info: R/O dvt, distal swelling and pain TECHNIQUE: Imaging protocol: Real-time Duplex ultrasound of the Right Lower Extremity with 2-D pennington scale, color Doppler flow and spectral waveform analysis with image documentation. Limited exam was focused on the right lower extremity veins. COMPARISON: No relevant prior studies available. FINDINGS: Right deep veins: Unremarkable. The common femoral, femoral, proximal profunda femoral and popliteal veins are patent without thrombus. Normal Doppler waveforms. Normal compressibility and/or augmentation response. Right superficial veins: Unremarkable. Saphenofemoral junction is patent without thrombus. Soft tissues: Unremarkable. US/[place] [id number] IMPRESSION: No evidence of deep vein thrombosis.
[2021-11-04] MEDS: amoxicillin-clav 875-125 mg Tablet 1 TAB PO (18:45)
[2021-11-04] MEDS: dexamethasone 10 mg/mL INJ IM (18:46)
== END 2021-11-04 19:04 | disposition home or self-care (01) ==
PROVIDERS: Emergency Provider Nurse Practitioner Family
DX: S90.861A Insect bite (nonvenomous), right foot, initial encounter (principal); W57.XXXA Bitten or stung by nonvenomous insect and other nonvenomous arthropods, initial encounter; M79.661 Pain in right lower leg
CPT/HCPCS: 93971; 96372; 99283; J1100

== ENCOUNTER 2021-12-03 13:35 | Oncology outpatient (recurring) (ONCR) | payer OTHER, SELFPAY ==
[2021-12-03 13:52] LABS: Basophils # 0.1 10^3/uL (0.0-0.1); Basophils % 0.9 %; Eosinophils # 0.3 10^3/uL (0.0-0.8); Eosinophils % 3.4 %; Hematocrit 38.1 % (37.0-47.0); Hemoglobin 13.1 g/dL (11.5-15.3); Lymphocytes # 4.7 10^3/uL (0.8-4.8); Lymphocytes % 52.3 %; Mean Corpuscular HGB Conc 34.4 g/dL (30.0-36.0); Mean Corpuscular Hemoglobin 28.2 pg (28.0-34.0); Mean Corpuscular Volume 81.9 fl (81-99); Monocytes # 0.7 10^3/uL (0.2-0.9); Monocytes % 7.5 %; Neutrophils % 35.8 %; Nucleated Red Blood Cells % 0 %; Platelet Count 227 10^3/cmm (130-400); Red Blood Count 4.65 10^6/uL (4.1-5.3); Red Cell Distribution Width 13.3 % (12.1-15.1); White Blood Count 8.9 10^3/uL (4.0-10.0)
[2021-12-03 14:15] LABS: Alanine Aminotransferase 72 U/L (0-33); Alkaline Phosphatase 97 IU/L (35-105); Anion Gap 18.2 (5-19); Aspartate Amino Transferase 39 U/L (0-32); Blood Urea Nitrogen 10 mg/dL (6-20); Carbon Dioxide 19 mmol/L (22-29); Chloride 107 mmol/L (98-107); Ferritin 82 ng/mL (15-150); Globulin 2.8 g/dL (1.3-4.6); Glucose 138 mg/dL (65-115); Iron 76 ug/dL (37-145); Osmolality Calculated 291 mOsm/kg (285-295); Percent Saturation 30.6 % (20-50); Potassium 4.2 mmol/L (3.5-5.1); Sodium 140 mmol/L (136-145); Total Bilirubin 0.2 mg/dL (0.15-1.2); Total Iron Binding Capacity 248 mcg/dl; Total Protein 6.8 g/dL (6.6-8.7); Unsaturated Iron Binding 172 ug/dL (112-347)
== END 2021-12-03 23:59 | disposition home or self-care (01) ==
PROVIDERS: Visit Provider Nurse Practitioner Family
DX: D64.9 Anemia, unspecified (principal); R74.01 Elevation of levels of liver transaminase levels; Z79.899 Other long term (current) drug therapy
CPT/HCPCS: 80053; 82728; 83540; 83550; 85025; 99214

== ENCOUNTER 2022-03-08 12:40 | Oncology outpatient (recurring) (ONCR) | payer OTHER, SELFPAY ==
[2022-03-08 13:51] LABS: Basophils # 0.1 10^3/uL (0.0-0.1); Basophils % 0.8 %; Eosinophils # 0.2 10^3/uL (0.0-0.8); Eosinophils % 1.8 %; Hematocrit 41.7 % (37.0-47.0); Hemoglobin 13.8 g/dL (11.5-15.3); Lymphocytes # 4.9 10^3/uL (0.8-4.8); Lymphocytes % 52.7 %; Mean Corpuscular HGB Conc 33.1 g/dL (30.0-36.0); Mean Corpuscular Volume 84.6 fl (81-99); Mean Platelet Volume 10.3 fL (7.4-10.4); Monocytes # 0.6 10^3/uL (0.2-0.9); Monocytes % 6.3 %; Neutrophils # 3.53 10^3/uL (1.8-7.7); Neutrophils % 38.3 %; Nucleated Red Blood Cells % 0 %; Platelet Count 251 10^3/cmm (130-400); Red Blood Count 4.93 10^6/uL (4.1-5.3); Red Cell Distribution Width 12.8 % (12.1-15.1); White Blood Count 9.2 10^3/uL (4.0-10.0)
[2022-03-08 14:17] LABS: Alanine Aminotransferase 42 U/L (0-33); Albumin Level 4.2 g/dL (3.5-5.2); Alkaline Phosphatase 107 U/L (35-105); Anion Gap 14.7 (5-19); Aspartate Amino Transferase 26 U/L (0-32); Blood Urea Nitrogen 9 mg/dL (6-20); Calcium 9.4 mg/dL (8.5-10.5); Carbon Dioxide 24 mmol/L (22-29); Chloride 101 mmol/L (98-107); Globulin 2.5 g/dL (1.3-4.6); Glomerular Filtration Rate 60.2 mL/min (90-130); Glucose 112 mg/dL (65-115); Osmolality Calculated 281 mOsm/kg (285-295); Potassium 3.7 mmol/L (3.5-5.1); Sodium 136 mmol/L (136-145); Total Bilirubin 0.2 mg/dL (0.15-1.2); Total Protein 6.7 g/dL (6.6-8.7)
[2022-03-08 14:39] LABS: Ferritin 125 ng/mL (15-150); Iron 66 ug/dL (37-145); Total Iron Binding Capacity 264 mcg/dl; Unsaturated Iron Binding 198 ug/dL (112-347)
== END 2022-04-05 23:59 | disposition home or self-care (01) ==
PROVIDERS: Nurse Practitioner; PCP Nurse Practitioner; Visit Provider Internal Medicine Medical Oncology
DX: D64.9 Anemia, unspecified (principal)
CPT/HCPCS: 80053; 82728; 83540; 83550; 85025; 99213

== ENCOUNTER 2022-05-07 09:45 | Oncology outpatient (recurring) (ONCR) | payer OTHER, SELFPAY ==
[2022-05-07 10:24] LABS: Basophils # 0.1 10^3/uL (0.0-0.1); Basophils % 1.3 %; Eosinophils # 0.3 10^3/uL (0.0-0.8); Hematocrit 38.2 % (37.0-47.0); Hemoglobin 12.8 g/dL (11.5-15.3); Lymphocytes % 43.7 %; Mean Corpuscular HGB Conc 33.5 g/dL (30.0-36.0); Mean Corpuscular Hemoglobin 28.8 pg (28.0-34.0); Mean Corpuscular Volume 85.8 fl (81-99); Mean Platelet Volume 10.3 fL (7.4-10.4); Monocytes # 0.7 10^3/uL (0.2-0.9); Monocytes % 7.9 %; Neutrophils # 3.98 10^3/uL (1.8-7.7); Neutrophils % 43.9 %; Nucleated Red Blood Cells % 0 %; Platelet Count 220 10^3/cmm (130-400); Red Blood Count 4.45 10^6/uL (4.1-5.3); Red Cell Distribution Width 13.3 % (12.1-15.1); White Blood Count 9.1 10^3/uL (4.0-10.0)
[2022-05-07 10:43] LABS: Alanine Aminotransferase 47 U/L (0-33); Albumin Level 3.9 g/dL (3.5-5.2); Alkaline Phosphatase 94 U/L (35-105); Anion Gap 12.9 (5-19); Aspartate Amino Transferase 32 U/L (0-32); Blood Urea Nitrogen 8 mg/dL (6-20); Calcium 8.7 mg/dL (8.5-10.5); Carbon Dioxide 23 mmol/L (22-29); Chloride 104 mmol/L (98-107); Ferritin 112 ng/mL (15-150); Globulin 2.8 g/dL (1.3-4.6); Glucose 106 mg/dL (65-115); Iron 61 ug/dL (37-145); Osmolality Calculated 281 mOsm/kg (285-295); Percent Saturation 23.2 % (20-50); Potassium 3.9 mmol/L (3.5-5.1); Sodium 136 mmol/L (136-145); Total Bilirubin 0.4 mg/dL (0.15-1.2); Total Iron Binding Capacity 262 mcg/dl; Total Protein 6.7 g/dL (6.6-8.7); Unsaturated Iron Binding 201 ug/dL (112-347)
== END 2022-06-05 23:59 | disposition home or self-care (01) ==
PROVIDERS: PCP Nurse Practitioner; Visit Provider Internal Medicine Medical Oncology
DX: D50.9 Iron deficiency anemia, unspecified (principal); Z79.899 Other long term (current) drug therapy
CPT/HCPCS: 36415; 80053; 82728; 83540; 83550; 85025; 99213

== ENCOUNTER 2022-10-21 08:40 | Outpatient (CLI) | payer OTHER, SELFPAY ==
--- NOTE | 2022-10-21 09:04 | MM_ITS ---
WS: [id number] Bilateral screening 3D tomosynthesis digital mammogram, 10/21/2022 Clinical Data: SCREENING Comparison: 12/01/2020, 05/20/2020, 01/08/2019, 11/29/2017, 11/11/2017. Findings: The breast parenchymal pattern shows fat replacement. No spiculated masses or clustered calcification s are seen. There are no secondary signs of carcinoma. MM/[place] [id number] Impression: 1. Negative bilateral mammogram unchanged. 2. Recommend annual screening mammograms. BIRADS: 1-Negative FOLLOW UP: 1 Year Follow-up The CAD cashier or checker stock clerk was used.
== END 2022-10-21 08:41 | disposition home or self-care (01) ==
LOC: RAD 08:48
PROVIDERS: PCP Nurse Practitioner; Visit Provider Nurse Practitioner
DX: Z12.31 Encounter for screening mammogram for malignant neoplasm of breast (principal)
CPT/HCPCS: 77063; 77067

== ENCOUNTER 2023-02-10 12:06 | Emergency (ER) | payer OTHER, SELFPAY ==
[2023-02-10 12:09] VITALS: BP 165/108; PULSE 108; RESP 18; TEMP 36.6; O2SAT 97; BMI 29.5
--- NOTE | 2023-02-10 12:14 | XRR_ITS ---
PROCEDURE INFORMATION: Exam: XR Chest Exam date and time: 02/10/2023 12:21 PM Age: 47 years old Clinical indication: Cough and dyspnea; Prior surgery; Surgery date: 6+ months; Surgery type: Loop recorder; Patient HX: Allergic reaction; Additional info: Dyspnea/cough TECHNIQUE: Imaging protocol: Radiologic exam of the chest. Views: 1 view. COMPARISON: No relevant prior studies available. FINDINGS: Lungs: There is no consolidation. Scattered tiny radiodense nodules are seen in both lungs suggesting healed granulomas. There is no consolidation. Pleural spaces: There is no pleural effusion or pneumothorax. Heart/Mediastinum: Cardiomediastinal contours are unremarkable. Bones/joints: Bones are unremarkable. XR/XR chest 1V portable [id number] IMPRESSION: No acute findings.
[2023-02-10 12:23] LABS: Basophils # 0.1 10^3/uL (0.0-0.1); Basophils % 0.9 %; Eosinophils # 0.2 10^3/uL (0.0-0.8); Eosinophils % 1.7 %; Hematocrit 41.6 % (36-47); Lymphocytes # 4.6 10^3/uL (0.8-4.8); Mean Corpuscular HGB Conc 32.9 g/dL (30-55); Mean Corpuscular Hemoglobin 27.9 pg (27-33); Mean Corpuscular Volume 84.7 fl (85-98); Mean Platelet Volume 10.6 fL (7.4-10.4); Monocytes # 0.7 10^3/uL (0.2-0.9); Neutrophils # 5.63 10^3/uL (1.8-7.7); Neutrophils % 50.1 %; Nucleated Red Blood Cells % 0 %; Platelet Count 222 10^3/cmm (157-399); Red Blood Count 4.91 10^6/uL (3.85-5.65); Red Cell Distribution Width 13.2 % (12.1-15.1); White Blood Count 11.22 10^3/uL (3.29-11.43)
[2023-02-10] MEDS: famotidine 20 mg/2 mL INJ 40 MG IVP (12:26)
[2023-02-10] MEDS: dexamethasone 10 mg/mL INJ IVP (12:28)
[2023-02-10 12:30] VITALS: BP 159/106; PULSE 108; RESP 17; O2SAT 100
--- NOTE | 2023-02-10 12:33 | W.ED.ALLEREA ---
HPI - Allergic Reaction General: Chief complaint: Allergic Reaction Stated complaint: allergic reaction Time Seen by Provider: 02/10/23 12:10 Source: patient Mode of arrival: ambulatory History of Present Illness: HPI narrative: 47-year-old female presents emergency room after insect bite. 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 She was stung on the chin several times last evening she has had more swelling in the submandibular space and feels like it is tracking down across the anterior neck. She was given IV Benadryl had side effects from that and subsequently was given epi now is having some shakes. Onset (ago): hour(s) Exposure: insect bite Associated symptoms: Deny abdominal pain, difficulty breathing, dysphagia, dizziness, facial swelling, hoarseness, itching, lip swelling, nausea, rash, tongue swelling or vomiting Treatment prior to arrival: benadryl and epinephrine Review of Systems Const: Denies: fever(s), chills, fatigue or malaise ENMT: Denies: hoarseness Card: Denies: chest pain, edema, dyspnea on exertion or orthopnea Resp: Denies: dyspnea, productive cough or non-productive cough GI: Denies: abdominal pain, nausea, vomiting or dysphagia : Denies: flank pain, difficulty voiding, dysuria, urinary frequency or urinary urgency Skin/Breast: Denies: rash or pruritus Neuro: Denies: dizziness All/Imm: Denies: tongue swelling or facial swelling PFSH ED PFSH: Medical History Anemia Asthma Costochondritis Fibromyalgia Surgical History History of cardiac radiofrequency ablation (RFA) Family History Family/Other Cancer Ovarian, multiple myeloma, laryngeal, abdominal, non-hodgkin's lymphoma Sister Cancer Brain, leukemia Other Chronic kidney disease (CKD) Diabetes Hyperlipidemia Hypertension Lung disease Psychiatric illness Stroke Denies family history of CAD (coronary artery disease) Clotting disorder Dementia Suicide Anesthesia complication Bleeding disorder Social History Smoking and tobacco status: former smoker (smoked x 30+ years) Alcohol intake: current Alcohol intake frequency: holidays/special occasions only Physical Exam Const: GENERAL APPEARANCE: cooperative and comfortable ORIENTATION/CONSCIOUSNESS: Yes awake, Yes oriented to person, Yes oriented to place and Yes oriented to time HENMT: COMMON NORMALS: normocephalic, atraumatic and hearing grossly normal bilaterally HEAD & SCALP: normocephalic and atraumatic OTHER: Swelling across the chin with some mild edema tracking in the anterior neck no hives Resp: COMMON NORMALS: normal respiratory effort, No retractions, No use of accessory muscles and clear to auscultation bilaterally AUSCULTATION: clear to auscultation bilaterally Cardio: COMMON NORMALS: regular rate, regular rhythm and No murmurs present (Cardio) RATE: regular rate RHYTHM: regular rhythm GI: COMMON NORMALS: Soft to palpation and No hepatosplenomegaly present AUSCULTATION: Yes normoactive bowel sounds PALPATION: Yes Soft to palpation, No Tenderness to palpation present (GI), No Guarding due to palpation present (GI) and Yes No hepatosplenomegaly present Extremity: COMMON NORMALS: normal to inspection, capillary refill normal, no clubbing, cyanosis or edema, no calf tenderness and no pedal edema Neuro: SENSORIUM/ORIENTATION: Yes oriented to person, Yes oriented to place and Yes oriented to time Skin: OTHER: 2-3 bites on the inner aspect of the right upper arm localized swelling no hives Course Vital Signs: Vital signs: Vital Signs Temperature 97.8 F 02/10/23 12:09 Pulse Rate 108 H 02/10/23 12:30 Respiratory Rate 17 02/10/23 12:30 Blood Pressure 159/106 02/10/23 12:30 Pulse Oximetry 100 02/10/23 12:30 Oxygen Delivery Me thod Room Air 02/10/23 12:30 MDM - Allergic Reaction Medical Decision Making No stridor no wheezing some soft tissue swelling. I think the symptoms she experienced when she got the IV Benadryl by EMS were side effects would not consider these an allergy. She did get jittery as well I think some of that may have been anxiety surrounding entire event as well as then receiving epinephrine after that. Recommend steroid taper beginning tomorrow continue cetirizine 10 mg twice daily Medical Records I reviewed the patient's medical records. Lab Data I reviewed the patient's lab results. 02/10/23 12:05 02/10/23 12:05 Laboratory Results WBC 11.22 10^3/uL (3.29-11.43) 02/10/23 12:05 RBC 4.91 10^6/uL (3.85-5.65) 02/10/23 12:05 Hgb 13.70 g/dL (11.27-16.99) 02/10/23 12:05 Hct 41.6 % (36-47) 02/10/23 12:05 MCV 84.7 fl (85-98) L 02/10/23 12:05 MCH 27.9 pg (27-33) 02/10/23 12:05 MCHC 32.9 g/dL (30-55) 02/10/23 12:05 RDW 13.2 % (12.1-15.1) 02/10/23 12:05 Plt Count 222 10^3/cmm (157-399) 02/10/23 12:05 MPV 10.6 fL (7.4-10.4) H 02/10/23 12:05 Neut % (Auto) 50.1 % 02/10/23 12:05 Lymph % (Auto) 41.0 % 02/10/23 12:05 [place] % (Auto) 6.0 % 02/10/23 12:05 Eos % (Auto) 1.7 % 02/10/23 12:05 Baso % (Auto) 0.9 % 02/10/23 12:05 Neut # (Auto) 5.63 10^3/uL (1.8-7.7) 02/10/23 12:05 Lymph # (Auto) 4.6 10^3/uL (0.8-4.8) 02/10/23 12:05 [place] # (Auto) 0.7 10^3/uL (0.2-0.9) 02/10/23 12:05 Eos # (Auto) 0.2 10^3/uL (0.0-0.8) 02/10/23 12:05 Baso # (Auto) 0.1 10^3/uL (0.0-0.1) 02/10/23 12:05 Nucleated RBC % (auto) 0 % 02/10/23 12:05 Nucleated RBCs # 0.0 /100WBC 02/10/23 12:05 Sodium 137 mmol/L (136-145) 02/10/23 12:05 Potassium 3.7 mmol/L (3.5-5.1) 02/10/23 12:05 Chloride 103 mmol/L (98-107) 02/10/23 12:05 Carbon Dioxide 23 mmol/L (22-29) 02/10/23 12:05 Anion Gap 14.7 (5-19) 02/10/23 12:05 BUN 11 mg/dL (6-20) 02/10/23 12:05 Creatinine 0.8 mg/dL (0.5-0.9) 02/10/23 12:05 GFR Calculation 77.6 mL/min (90-130) L 02/10/23 12:05 Glucose 102 mg/dL (65-115) 02/10/23 12:05 Calculated Osmolality 284 mOsm/kg (285-295) L 02/10/23 12:05 Calcium 8.9 mg/dL (8.5-10.5) 02/10/23 12:05 Total Bilirubin 0.3 mg/dL (0.15-1.2) 02/10/23 12:05 AST 17 U/L (0-32) 02/10/23 12:05 ALT 23 U/L (0-33) 02/10/23 12:05 Alkaline Phosphatase 90 U/L (35-105) 02/10/23 12:05 Total Protein 7.3 g/dL (6.6-8.7) 02/10/23 12:05 Albumin 4.4 g/dL (3.5-5.2) 02/10/23 12:05 Globulin 2.9 g/dL (1.3-4.6) 02/10/23 12:05 Discharge Plan Discharge Patient Disposition: Home Clinical Impression: Bee sting reaction Condition: Stable Prescriptions: New Medrol (David) 4 mg tablets,dose pack See Rx Instructions .ROUTE .COMPLEX Qty: 21 0RF Rx Instructions: orally per package directions No Action gabapentin 300 mg capsule 300 mg PO TID topiramate 100 mg cap,sprinkle,ER 24hr dose pack 100 mg PO DAILY montelukast [Singulair] 10 mg tablet 10 mg PO DAILY loratadine [Claritin] 10 mg tablet 10 mg PO DAILY promethazine 25 mg tablet 25 mg PO TID PRN (Reason: Nausea) omeprazole 20 mg capsule,delayed release(DR/EC) 20 mg PO DAILY rosuvastatin 40 mg tablet 40 mg PO DAILY melatonin 3 mg capsule 6 mg PO BEDTIME propranolol 80 mg capsule,extended release 24 hr 80 mg PO DAILY meloxicam 15 mg tablet 15 mg PO DAILY sumatriptan succinate 50 mg tablet See Rx Instructions PO .COMPLEX Rx Instructions: take 1 tab at onset of headache; if no relief may repeat 1 tab after at least 2 hrs; max = 4 tabs/24 hr PO albuterol sulfate 90 mcg/actuation aerosol powdr breath activated 1 inh inhalation QID fluticasone propionate [Flonase Allergy Relief] 50 mcg/actuation spray,suspension 1 spray intranasal DAILY Rx Instructions: administer into each nostril cyclobenzaprine 10 mg tablet 10 mg PO TID PRN (Reason: muscle spasm) ferrous sulfate 325 mg (65 mg iron) tablet 650 mg PO DAILY diclofenac sodium 50 mg Tablet,Delayed Release (Dr/Ec) 50 mg PO Q12H PRN (Reason: Pain) Discharge Orders: Discharge ED (Routine); Ordered 02/10/23 Ordered By: Krystian Reddy Referrals: Kelli Patel, DOCTOR NATUROPATHIC [Primary Care Provider] - Discharge Diet: Usual diet Discharge Activity: Increase activity as tolerated Patient Instructions: Opioid Safety, Pain Management Activity Restrictions/Additional Instructions: Start oral steroid taper tomorrow. Continue take cetirizine 10 mg 1 p.o. twice daily as long as you have swelling. Coding Level of Care Code ED Line Mover for Rohit Gonzalez
[2023-02-10 12:42] LABS: Alanine Aminotransferase 23 U/L (0-33); Albumin Level 4.4 g/dL (3.5-5.2); Alkaline Phosphatase 90 U/L (35-105); Anion Gap 14.7 (5-19); Aspartate Amino Transferase 17 U/L (0-32); Blood Urea Nitrogen 11 mg/dL (6-20); Calcium 8.9 mg/dL (8.5-10.5); Carbon Dioxide 23 mmol/L (22-29); Chloride 103 mmol/L (98-107); Globulin 2.9 g/dL (1.3-4.6); Glomerular Filtration Rate 77.6 mL/min (90-130); Glucose 102 mg/dL (65-115); Osmolality Calculated 284 mOsm/kg (285-295); Potassium 3.7 mmol/L (3.5-5.1); Sodium 137 mmol/L (136-145); Total Bilirubin 0.3 mg/dL (0.15-1.2); Total Protein 7.3 g/dL (6.6-8.7)
[2023-02-10 13:24] VITALS: BP 158/95; PULSE 102; RESP 16; O2SAT 97
== END 2023-02-10 13:27 | disposition home or self-care (01) ==
PROVIDERS: Emergency Provider Family Medicine; PCP Nurse Practitioner
DX: T63.441A Toxic effect of venom of bees, accidental (unintentional), initial encounter (principal); Z87.891 Personal history of nicotine dependence
CPT/HCPCS: 71045; 80053; 85025; 96374; 96375; 99284; J1100; J3490

== ENCOUNTER 2023-03-02 20:00 | Outpatient (CLI) | payer OTHER, SELFPAY | END 2023-03-02 20:01 | disposition home or self-care (01) | LOC: SLEEP 03-03 03:45 | PROVIDERS: PCP Nurse Practitioner; Visit Provider Nurse Practitioner | DX: G47.33 Obstructive sleep apnea (adult) (pediatric) (principal) | CPT/HCPCS: 95810 ==

== ENCOUNTER 2023-08-11 08:56 | Day surgery (SDC) | payer OTHER, SELFPAY ==
--- NOTE | 2023-08-09 09:38 | P.ANESASSM_ITS ---
Pre-Anesthetic Assessment Height/Weight: Height 1.73 m Operation Date: 08/11/23 12:00 Proposed Procedures p Hysterosocpy,endometrial sampling, possible endomterial polypectomy 85008, Intrauterine device placement 94449 ,N93.9(Not Applicable) - Brian Donis MD s Poylpectomy(Not Applicable) - Brian Donis MD s Placement of Intrauterine Device(Not Applicable) - Brian Donis MD Social No alcohol and No tobacco Exam alert, oriented x 3, clear to auscultation bilaterally and regular rate & rhythm Airway Submandibular: within normal limits Cervical ROM: within normal limits Mallampati: Class I Pulmonary Asthma CV/HEM Arrythmia in distant past. Loop monitor several years ago with no significant findings per patient. GI Gastroesophageal Reflux Disease Anesthetic Plan ASA status: 2 Anesthesia: General Other: plan ETT Risk of > 500 ml blood loss (7ml/kg in children): No Medications/Allergies Home Medications Medication Instructions Recorded Confirmed Last Taken Type albuterol sulfate 90 mcg/actuation 1 inh inhalation QID PRN Shortness 04/17/21 08/09/23 08/09/23 History breath activated powder inhaler Of Breath Or Wheezing fluticasone propionate 50 1 spray intranasal DAILY PRN 04/17/21 08/09/23 08/08/23 History mcg/actuation nasal Allergy Symptoms spray,suspension (Flonase Allergy Relief) gabapentin 300 mg capsule 300 mg PO TID 04/17/21 08/09/23 08/09/23 History loratadine 10 mg tablet (Claritin) 10 mg PO DAILY 04/17/21 08/09/23 08/08/23 History melatonin 3 mg capsule 6 mg PO BEDTIME 04/17/21 08/09/23 08/08/23 History meloxicam 15 mg tablet 15 mg PO DAILY 04/17/21 08/09/23 08/08/23 History montelukast 10 mg tablet 10 mg PO DAILY 04/17/21 08/09/23 08/08/23 History (Singulair) omeprazole 20 mg capsule,delayed 20 mg PO DAILY 04/17/21 08/09/23 08/08/23 History release propranolol 80 mg capsule,24 80 mg PO DAILY 04/17/21 08/09/23 08/08/23 History hr,extended release rosuvastatin 40 mg tablet 40 mg PO DAILY 04/17/21 08/09/23 08/08/23 History sumatriptan succinate 50 mg tablet See Rx Instructions PO .COMPLEX 04/17/21 08/09/23 Unknown History topiramate 100 mg capsule 100 mg PO DAILY 04/17/21 08/09/23 08/08/23 History sprinkle,extended release 24 hr cyclobenzaprine 10 mg tablet 10 mg PO TID PRN muscle spasm 12/03/21 08/09/23 08/08/23 History ferrous sulfate 325 mg (65 mg 650 mg PO DAILY PRN menstrual 03/08/22 08/09/23 08/02/23 History iron) tablet cycles diclofenac sodium 50 mg 50 mg PO Q12H PRN Pain 02/10/23 08/09/23 Unknown History tablet,delayed release Thyroid Supplement 1 tab PO DAILY 08/09/23 08/09/23 08/08/23 History Allergies Allergy/AdvReac Type Severity Reaction Status Date / Time Alpha-Gal Allergy ADR-Chest Verified 08/09/23 09:05 (Nngldlvne-Gxpdd-0,3-Gala Pain surgical glue Allergy Intermediate Unknown Uncoded 08/09/23 09:05 red meat Allergy Unknown Uncoded 08/09/23 09:05 [facility] Anesthesia Medical History Anemia Asthma Fibromyalgia Costochondritis Surgical History History of cardiac radiofrequency ablation (RFA) Family History (Updated 07/20/23 @ 09:17 by Marta Gudino LPN) Sister Hypercholesteremia Hypertension Diabetes Mother Diabetes Other Stroke Denies family history of Colon cancer Ovarian cancer Heart disease Breast cancer Suicide Uterine cancer Thyroid disease Data Anesthesia Cardiac Studies: No Data to Display
[2023-08-11] VITALS (11 sets, daily range): BP systolic 109–143; BP diastolic 73–101; PULSE 69–81; RESP 12–22; TEMP 36.1–36.7; O2SAT 97–100; BMI 32.1
--- NOTE | 2023-08-11 01:45 | P.HP_ITS ---
Same Day Surgery H&P Indication for Procedure/HPI DATE OF PROCEDURE: August 11, 2023 CHIEF COMPLAINT/INDICATIONFOR SURGICAL PROCEDURE: abnormal uterine bleeding PREOP DIAGNOSIS: abnormal uterine bleeding PLANNED PROCEDURE: Operation Date: 08/11/23 10:25 Proposed Procedures p Hysterosocpy,endometrial sampling, possible endomterial polypectomy 40518, In trauterine device placement 14473 ,N93.9(Not Applicable) - Brian Donis MD s Poylpectomy(Not Applicable) - Brian Donis MD s Placement of Intrauterine Device(Not Applicable) - Brian Donis MD 47 y.o. Periods very heavy for past 5 years, regular Lasting 5-7 days with large clots and cramping now scheduled for hysteroscopy, endometrial sampling, possible endometrial ashley ypectomy; mirena intrauterine device placement Medications/Allergies* Home Medications Medication Instructions Recorded Confirmed Type albuterol sulfate 90 mcg/actuation 1 inh inhalation QID PRN Shortness 04/17/21 08/09/23 History breath activated powder inhaler Of Breath Or Wheezing fluticasone propionate 50 1 spray intranasal DAILY PRN 04/17/21 08/09/23 History mcg/actuation nasal Allergy Symptoms spray,suspension (Flonase Allergy Relief) gabapentin 300 mg capsule 300 mg PO TID 04/17/21 08/09/23 History loratadine 10 mg tablet (Claritin) 10 mg PO DAILY 04/17/21 08/09/23 History melatonin 3 mg capsule 6 mg PO BEDTIME 04/17/21 08/09/23 History meloxicam 15 mg tablet 15 mg PO DAILY 04/17/21 08/09/23 History montelukast 10 mg tablet 10 mg PO DAILY 04/17/21 08/09/23 History (Singulair) omeprazole 20 mg capsule,delayed 20 mg PO DAILY 04/17/21 08/09/23 History release propranolol 80 mg capsule,24 80 mg PO DAILY 04/17/21 08/09/23 History hr,extended release rosuvastatin 40 mg tablet 40 mg PO DAILY 04/17/21 08/09/23 History sumatriptan succinate 50 mg tablet See Rx Instructions PO .COMPLEX 04/17/21 08/09/23 History topiramate 100 mg capsule 100 mg PO DAILY 04/17/21 08/09/23 History sprinkle,extended release 24 hr cyclobenzaprine 10 mg tablet 10 mg PO TID PRN muscle spasm 12/03/21 08/09/23 History ferrous sulfate 325 mg (65 mg 650 mg PO DAILY PRN menstrual 03/08/22 08/09/23 History iron) tablet cycles diclofenac sodium 50 mg 50 mg PO Q12H PRN Pain 02/10/23 08/09/23 History tablet,delayed release Thyroid Supplement 1 tab PO DAILY 08/09/23 08/09/23 History Allergies/Adverse Reactions Allergy/AdvReac Type Severity Reaction Status Date / Time Alpha-Gal Allergy ADR-Chest Verified 08/09/23 09:05 (Vttiqublf-Gwhvo-9,3-Gala Pain surgical glue Allergy Intermediate Unknown Uncoded 08/09/23 09:05 red meat Allergy Unknown Uncoded 08/09/23 09:05 Pertinent History/Comorbid Conditions* Medical History (Updated 07/27/23 @ 06:46 by Brian Donis MD) Anemia Asthma Fibromyalgia Costochondritis Surgical History (Updated 04/17/21 @ 14:44 by Simon Raymond MD) History of cardiac radiofrequency ablation (RFA) Family History (Updated 07/20/23 @ 09:16 by Marta Gudino LPN) Diabetes Sister Mother Hypercholesteremia Sister Hypertension Sister Stroke Denies family history of Colon cancer Ovarian cancer Heart disease Breast cancer Suicide Uterine cancer Thyroid disease Pertinent Exam Findings alert, oriented x 3, clear to auscultation bilaterally and regular rate & rhythm Recommendations Surgery/Procedure today Coding Level of Care Code Acute Code for Chg Fwd Time Spent (min) 15
--- NOTE | 2023-08-11 08:47 | W.PM.OPSUD ---
Surgery/Procedure H&P Update DATE OF PROCEDURE: August 11, 2023 DATE H&P PERFORMED: 08/11/23 H&P UPDATE INFORMATION: I have reviewed H&P completed within last 30 days, I have examined patient prior to procedure and No changes to prior documentation PREOP DIAGNOSIS: abnormal uterine bleeding PLANNED PROCEDURE: Operation Date: 08/11/23 10:25 Proposed Procedures p Hysterosocpy,endometrial sampling, possible endomterial polypectomy 11669, Intrauterine device placement 50743 ,N93.9(Not Applicable) - Brian Donis MD s Poylpectomy(Not Applicable) - Brian Donis MD s Placement of Intrauterine Device(Not Applicable) - Brian Donis MD
[2023-08-11 09:30] LABS: OR HCG Qualitative Urine Negative (Negative)
[2023-08-11] MEDS: sodium chloride 0.9% 1,000 ML 30 ML IV (09:48)
--- NOTE | 2023-08-11 10:15 | PM.OP ---
Operative Report Date of procedure: August 11, 2023 Pre-op diagnosis: abnormal uterine bleeding Post-op diagnosis: same Post-op findings: One endometrial polyp Small amount of endometrial tissue Procedure done: hysteroscopy Endometrial sampling with Myosure Curettage of uterus Placement of mirena intrauterine device Implants: mirena intrauterine device Specimens removed/disposition: endometrial tissue Surgeon: Brian Donis MD Anesthesia: MAC Estimated blood loss (mL): 0 Complications: none Condition: stable Disposition: PACU Brief History: 48 y.o. with abnormal uterine bleeding Procedure: Informed consent signed. Patient was taken to the operating room. Anesthesia was induced. Patient was placed in dorsolithotomy position, prepped and draped for hysteroscopy. A bivalve speculum was placed in the vagina. The anterior lip of the cervix was grasped with a sharp-toothed tenaculum. The uterus was sounded to 8 cm. The cervix was serially dilated with Hegar dilators. . A hysteroscope was placed into the endometrial cavity. A single 2 cm endometrial polyp was seen. There was a small amount of endometrial tissue. The Myosure device was used to remove the polyp and obtain endometrial tissue. The hysteroscope was then removed. Endometrial curettage was done with a sharp curette. Endometrial tissue was sent to pathology. The hysteroscope was re-introduced and the endometrial cavity was seen to be intact. The hysteroscope was removed. The mirena IUD was then prepared, placed into the endometrial cavity and deployed. A 3-4 cm string was left at the cervical os. The sharp-toothed tenaculum was removed. There was no bleeding from the endometrial cavity or cervix. The patient was then placed supine and awakened and taken to the PACU. Postop condition: stable EBL: 0 cc Sponge and instruments counts were normal x 2 Complications: none
--- NOTE | 2023-08-11 10:26 | P.ANESUD_ITS ---
Pre-Anesthetic Update Pre-Anesthetic Assessment: Date of Surgery/Procedure: 08/11/23 Preop Shaina gnosis: abnormal uterine bleeding Proposed Procedure: Operation Date: 08/11/23 10:25 Proposed Procedures p Hysterosocpy,endometrial sampling, possible endomterial polypectomy 81072, Intrauterine device placement 51659 ,N93.9(Not Applicable) - Brian Donis MD s Poylpectomy(Not Applicable) - Brian Donis MD s Placement of Intrauterine Device(Not Applicable) - Brian Donis MD Any changes to Pre-Anesthetic Assessment?: No Last Intake: Intake Last Liquid Date 08/10/23 Last Liquid Time 23:55 Last Solid Date 08/10/23 Last Solid Time 23:30 Vitals: Temperature 98.1 F 08/11/23 09:14 Temperature Source Temporal Artery S can 08/11/23 09:14 Pulse Rate 73 08/11/23 09:14 Pulse Rhythm Regular 08/11/23 09:25 Pulse Strength 3+ Normal 08/11/23 09:25 Respiratory Rate 16 08/11/23 09:14 Blood Pressure 134/90 08/11/23 09:14 Blood Pressure Kylee n 104 08/11/23 09:14 Pulse Oximetry 97 08/11/23 09:14 Oxygen Delivery Me thod Room Air 08/11/23 09:25 Exam: Pre-Anes Outpt Exam: alert and oriented x 3 Other Pertinent Information: Other Pertinent Information: GERD well-controlled. LMA ok Cardiac Studies: No Data to Display
--- NOTE | 2023-08-11 10:35 | SUR.OPER ---
penelope humphrey. exp 07/05/25 Lot# [id number]
--- NOTE | 2023-08-11 20:23 | ANE.PACU2 ---
Inpatient post-anesthesia follow up: Airway intact: Yes Vital signs: Temperature 97.9 F Pulse Rate 74 Respiratory Rate 16 Blood Pressure 133/93 Pulse Oximetry 99 Oxygen Delivery Me thod Room Air Oxygen Flow Rate 6 Fraction of Inspir ed Oxygen Hydration adequate: Yes Nausea and vomiting: No Pain level: 2 Mental status: Baseline
== END 2023-08-11 12:20 | disposition home or self-care (01) ==
PROVIDERS: PCP Nurse Practitioner; Visit Provider Obstetrics & Gynecology
PROC: 0UJD8ZZ Inspection of Uterus and Cervix, Via Natural or Artificial Opening Endoscopic (ICD-10-PCS; CPT 58555; principal; 2023-08-11 10:15)
PROC: (CPT 58300; 2023-08-11 10:15)
PROC: (CPT 58300; 2023-08-11 10:15)
DX: N93.9 Abnormal uterine and vaginal bleeding, unspecified (principal); M79.7 Fibromyalgia
CPT/HCPCS: 58300; 58558; 81025; 84703; 88305; J0330; J1100; J1200; J2250; J2405; J2704; J3010; J7030

== ENCOUNTER 2024-01-17 09:49 | Outpatient (CLI) | payer OTHER, SELFPAY ==
--- NOTE | 2024-01-17 10:04 | MM_ITS ---
WS: [id number] BILATERAL SCREENING DIGITAL TOMOSYNTHESIS MAMMOGRAM WITH CAD HISTORY: SCREENING COMPARISON: 10/21/2022, 12/02/2020 Bilateral CC and MLO views with tomosynthesis and synthetic mammography submitted. Computer aided det ection analyzed. Breast composition: There are scattered areas of fibroglandular density. No suspicious masses, microc alcifications or architectural distortion. MM/[place] [id number] IMPRESSION: BI-RADS: 1-Negative FOLLOW UP: 1 Year Follow-up
== END 2024-01-17 09:50 | disposition home or self-care (01) ==
LOC: RAD 09:50
PROVIDERS: PCP Nurse Practitioner; Visit Provider Nurse Practitioner
DX: Z12.31 Encounter for screening mammogram for malignant neoplasm of breast (principal)
CPT/HCPCS: 77063; 77067

== ENCOUNTER 2024-03-12 13:26 | Observation (INO) | payer OTHER, SELFPAY ==
[2024-03-12] VITALS (12 sets, daily range): BP systolic 118–167; BP diastolic 79–103; PULSE 93–122; RESP 18–22; TEMP 36.4–36.8; O2SAT 92–99; BMI 34.2
--- NOTE | 2024-03-12 14:40 | ED_ITS ---
HPI - Allergic Reaction 2 General: Chief complaint: Allergic Reaction Stated complaint: ALLERGIC REACTION Time Seen by Provider: 03/12/24 13:40 History of Present Illness: HPI narrative: 48-year-old female presents emergency ro om she walked into her doctor's office evidently smelled some cologne and began having a reaction. She arrives here on 2 to 3 L. She had been given oxygen and epi at the [place] clinic. She is having a cough and she is tachycardic. She was given an albuterol treatment and route by EMS. On arrival here sats are normal on room air. Associated symptoms: Deny abdominal pain Related Data Home Medications Medication Instructions Recorded Confirmed albuterol sulfate 90 mcg/actuation 1 inh inhalation QID PRN Shortness 04/17/21 12/26/23 breath activated powder inhaler Of Breath Or Wheezing fluticasone propionate 50 1 spray intranasal DAILY PRN 04/17/21 12/26/23 mcg/actuation nasal Allergy Symptoms spray,suspension (Flonase Allergy Relief) gabapentin 300 mg capsule 300 mg PO TID 04/17/21 12/26/23 loratadine 10 mg tablet (Claritin) 10 mg PO DAILY 04/17/21 12/26/23 melatonin 3 mg capsule 6 mg PO BEDTIME 04/17/21 12/26/23 meloxicam 15 mg tablet 15 mg PO DAILY 04/17/21 12/26/23 montelukast 10 mg tablet 10 mg PO DAILY 04/17/21 12/26/23 (Singulair) omeprazole 20 mg capsule,delayed 20 mg PO DAILY 04/17/21 12/26/23 release propranolol 80 mg capsule,24 80 mg PO DAILY 04/17/21 12/26/23 hr,extended release rosuvastatin 40 mg tablet 40 mg PO DAILY 04/17/21 12/26/23 sumatriptan succinate 50 mg tablet See Rx Instructions PO .COMPLEX 04/17/21 12/26/23 topiramate 100 mg capsule 100 mg PO DAILY 04/17/21 12/26/23 sprinkle,extended release 24 hr cyclobenzaprine 10 mg tablet 10 mg PO TID PRN muscle spasm 12/03/21 12/26/23 ferrous sulfate 325 mg (65 mg 650 mg PO DAILY PRN menstrual 03/08/22 12/26/23 iron) tablet cycles diclofenac sodium 50 mg 50 mg PO Q12H PRN Pain 02/10/23 12/26/23 tablet,delayed release Aimovig Autoinjector IM 08/11/23 12/26/23 levonorgestrel 21 mcg/24 hr (up to intrauterine 09/27/23 12/26/23 8 years) 52 mg intrauterine device (Mirena) Allergies Allergy/AdvReac Type Severity Reaction Status Date / Time Alpha-Gal Allergy ADR-Chest Verified 12/26/23 14:01 (Xynrhjjvu-Esgng-8,3-Gala Pain surgical glue Allergy Intermediate Unknown Uncoded 12/26/23 14:01 red meat Allergy Unknown Uncoded 12/26/23 14:01 Review of Systems 2 Const: Denies: fever(s) or chills Card: Denies: chest pain Resp: Denies: dyspnea GI: Denies: abdominal pain : Denies: dysuria, urinary frequency or urinary urgency Musc: Denies: neck pain or back pain Skin/Breast: Denies: rash PFSH ED 2 PFSH: Medical History Anemia Asthma Fibromyalgia Costochondritis Surgical History History of cardiac radiofrequency ablation (RFA) Family History Sister Hypercholesteremia Hypertension Diabetes Mother Diabetes Other Stroke Denies family history of Colon cancer Ovarian cancer Heart disease Breast cancer Suicide Uterine cancer Thyroid disease Physical Exam 2 Const: COMMON NORMALS: no acute distress GENERAL APPEARANCE: cooperative and comfortable ORIENTATION/CONSCIOUSNESS: Yes awake, Yes oriented to person, Yes oriented to place and Yes oriented to time HENMT: COMMON NORMALS: normocephalic, atraumatic and hearing grossly normal bilaterally HEAD & SCALP: normocephalic and atraumatic Resp: COMMON NORMALS: normal respiratory effort, No retractions, No use of accessory muscles and clear to auscultation bilaterally AUSCULTATION: clear to auscultation bilaterally Cardio: COMMON NORMALS: regular rate, regular rhythm and No murmurs present (Cardio) RATE: regular rate RHYTHM: regular rhythm GI: COMMON NORMALS: Soft to palpation and No hepatosplenomegaly present A USCULTATION: Yes normoactive bowel sounds PALPATION: Yes Soft to palpation, No Tenderness to palpation present (GI), No Guarding due to palpation present (GI) and Yes No hepatosplenomegaly present Extremity: COMMON NORMALS: normal to inspection, capillary refill normal, no clubbing, cyanosis or edema, no calf tenderness and no pedal edema Neuro: SENSORIUM/ORIENTATION: Yes oriented to person, Yes oriented to place and Yes oriented to time Skin: COMMON NORMALS: no rashes or lesions noted GENERAL SKIN EXAM: no rashes or lesions noted Course 2 Vital Signs: Vital signs: Vital Signs Temperature 98.0 F 03/13/24 04:00 Pulse Rate 127 H 03/13/24 04:00 Respiratory Rate 18 03/13/24 04:00 Blood Pressure 130/84 03/13/24 04:00 Pulse Oximetry 93 03/13/24 04:00 Oxygen Delivery Me thod Room Air 03/13/24 04:00 MDM - Allergic Reaction Medical Decision Making Continues to complain of cough and a sensation of tightness in her throat. Initially patient was tachycardic and mildly hypertensive likely from the epinephrine. She is concerned about medications because reported alpha gal. We monitored her for a time she continued to have difficulty we did give her a dose of Benadryl she was concerned that it may cause a reaction because of her alpha gal. Did not develop any worsening had mild improvement past. Will place on observation continue steroids antihistamines discussed with hospitalist and with patient orders written. Medical Records I reviewed the patient's medical records. Lab Data I reviewed the patient's lab results. 03/13/24 05:24 03/13/24 05:24 No radiology studies performed this visit Discharge Plan Discharge Patient Disposition: Placed in Observation Admit Provider: Steph Oneil Clinical Impression: Allergy to alpha-gal Condition: Stable Coding Level of Care Code ED Tank Welder for Rohit Gonzalez
[2024-03-12] MEDS: ipratropium-albuterol 3 mL Neb INHALATION ×2 (14:48→16:01)
[2024-03-12] MEDS: diphenhydrAMINE 50 mg/mL SDV 1mL IVP (15:56)
--- NOTE | 2024-03-12 16:50 | PM.HP ---
Providers/Chief Complaint Primary Care Provider: REY Mason Chief Complaint: ALLERGIC REACTION History of Present Illness Ibeth Palacios is a 48 year old female with history of alpha gal, presented to the hospital would chief complaint of excessive coughing, shortness of breath and tachycardia after being exposed to strong body cologne. Patient is stating that she has been recently diagnosed with severe allergic reaction to strong smells. She was at [place] clinic today when she got exposed, by the EMS she was given high-dose albuterol and steroids. At the time of my evaluation she is not short of breath saturating well with stable hemodynamics, no anaphylaxis signs. SHe is tachycardic and coughing. Patient was asking about alternatives to marijuana that she takes for fibromyalgia. Patient is stating that she takes gabapentin 1800 mg a day Review of Systems Const: Denies: fever(s) Eyes: Denies: change in vision ENMT: Denies: throat pain Card: Denies: chest pain Resp: Reports: dyspnea; Denies: wheezing GI: Denies: abdominal pain Medications/Allergies Home Medications Medication Instructions Recorded Confirmed Last Taken Type albuterol sulfate 90 mcg/actuation 1 inh inhalation QID PRN Shortness 04/17/21 12/26/23 08/09/23 History breath activated powder inhaler Of Breath Or Wheezing fluticasone propionate 50 1 spray intranasal DAILY PRN 04/17/21 12/26/23 08/10/23 History mcg/actuation nasal Allergy Symptoms spray,suspension (Flonase Allergy Relief) gabapentin 300 mg capsule 300 mg PO TID 04/17/21 12/26/23 08/11/23 History loratadine 10 mg tablet (Claritin) 10 mg PO DAILY 04/17/21 12/26/23 08/10/23 History melatonin 3 mg capsule 6 mg PO BEDTIME 04/17/21 12/26/23 08/10/23 History meloxicam 15 mg tablet 15 mg PO DAILY 04/17/21 12/26/23 08/10/23 History montelukast 10 mg tablet 10 mg PO DAILY 04/17/21 12/26/23 08/10/23 History (Singulair) omeprazole 20 mg capsule,delayed 20 mg PO DAILY 04/17/21 12/26/23 08/10/23 History release propranolol 80 mg capsule,24 80 mg PO DAILY 04/17/21 12/26/23 08/10/23 History hr,extended release rosuvastatin 40 mg tablet 40 mg PO DAILY 04/17/21 12/26/23 08/10/23 History sumatriptan succinate 50 mg tablet See Rx Instructions PO .COMPLEX 04/17/21 12/26/23 Unknown History topiramate 100 mg capsule 100 mg PO DAILY 04/17/21 12/26/23 08/10/23 History sprinkle,extended release 24 hr cyclobenzaprine 10 mg tablet 10 mg PO TID PRN muscle spasm 12/03/21 12/26/23 08/10/23 History ferrous sulfate 325 mg (65 mg 650 mg PO DAILY PRN menstrual 03/08/22 12/26/23 08/02/23 History iron) tablet cycles diclofenac sodium 50 mg 50 mg PO Q12H PRN Pain 02/10/23 12/26/23 08/03/23 History tablet,delayed release Aimovig Autoinjector IM 08/11/23 12/26/23 08/10/23 History levonorgestrel 21 mcg/24 hr (up to intrauterine 09/27/23 12/26/23 Unknown History 8 years) 52 mg intrauterine device (Mirena) Allergies Allergy/AdvReac Type Severity Reaction Status Date / Time Alpha-Gal Allergy ADR-Chest Verified 12/26/23 14:01 (Jaipiqikx-Ifwrt-1,3-Gala Pain surgical glue Allergy Intermediate Unknown Uncoded 12/26/23 14:01 red meat Allergy Unknown Uncoded 12/26/23 14:01 PFSH Acute PFSH: Medical History Anemia Asthma Fibromyalgia Costochondritis Surgical History History of cardiac radiofrequency ablation (RFA) Family History Sister Hypercholesteremia Hypertension Diabetes Mother Diabetes Other Stroke Denies family history of Colon cancer Ovarian cancer Heart disease Breast cancer Suicide Uterine cancer Thyroid disease Vitals/I&O/Wt Last Vital Signs Temp 98.2 F 03/12/24 13:44 Pulse 105 H 03/12/24 16:00 Resp 18 03/12/24 16:00 BP 167/103 03/12/24 13:44 Pulse Ox 98 03/12/24 16:00 O2 Del Method Room Air 03/12/24 16:00 Weight last 48 hrs Weight 102.058 kg Physical Exam Narrative: Patient laying supine No active signs of anaphylaxis No active stridor or wheezing Hemodynamically stable GCS 15 Nonfocal neuroexam Morbid obese Tachycardic sinus tachycardia Non productive cough A&P Assessment and plan (1) Allergy to alpha-gal: (2) Fibromyalgia: (3) Bronchitis due to chemical: Plan Bronchitis Alpha gal deficiency No sign of anaphylaxis Exposure to strong body: Patient is showing signs of side effects from high-dose of albuterol with tachycardia, high blood pressure and mild tremors I will change her DuoNeb to Xopenex for now Would use Benadryl and steroids For fibromyalgia would continue her home regimen No airway compromise signs She is full code DVT prophylaxis added Cardiac diet Attestations Medical Necessity Statement*: Anticipating discharge within 48 hours Diagnoses Allergy to alpha-gal Z91.018 Fibromyalgia M79.7 Bronchitis due to chemical J68.0
--- NOTE | 2024-03-12 19:15 | PC.NURSE ---
Katelynn HOUGH and this preceptor assumed care from Joselyn HOUGH at shift change.
[2024-03-12] MEDS: levalbuterol 1.25 mg/3 mL Neb INHALATION (21:10)
[2024-03-12] MEDS: enoxaparin 40 mg/0.4 mL Syringe SUBCUT (21:51)
[2024-03-12] MEDS: gabapentin 300 mg Capsule 900 MG PO (21:52)
[2024-03-12] MEDS: hydrocortisone 100 mg/2 mL SDV 50 MG IVP (21:52)
[2024-03-12] MEDS: pantoprazole 40 mg SDV IVP (21:56)
[2024-03-12] MEDS: diphenhydrAMINE 50 mg/mL SDV 1mL 25 MG IVP (22:03)
[2024-03-13] VITALS: BP 139/81; PULSE 113; RESP 18; TEMP 37.2; O2SAT 93
[2024-03-13] MEDS: acetaminophen 500 mg Tablet PO (00:01)
[2024-03-13 00:12] VITALS: PULSE 95; RESP 18; O2SAT 99
[2024-03-13] MEDS: levalbuterol 1.25 mg/3 mL Neb INHALATION (00:12)
[2024-03-13 00:17] VITALS: PULSE 95; RESP 18; O2SAT 99
[2024-03-13 04:00] VITALS: BP 130/84; PULSE 127; RESP 18; TEMP 36.7; O2SAT 93
[2024-03-13 05:50] LABS: Basophils % 0.2 %; Hematocrit 40.3 % (36-47); Lymphocytes # 2.6 10^3/uL (0.8-4.8); Lymphocytes % 12.5 %; Mean Corpuscular HGB Conc 32.5 g/dL (30-55); Mean Corpuscular Hemoglobin 28.5 pg (27-33); Mean Corpuscular Volume 87.6 fl (85-98); Mean Platelet Volume 10.3 fL (7.4-10.4); Monocytes # 0.9 10^3/uL (0.2-0.9); Monocytes % 4.5 %; Neutrophils # 17.29 10^3/uL (1.8-7.7); Neutrophils % 81.9 %; Nucleated Red Blood Cells % 0 %; Platelet Count 270 10^3/cmm (157-399); Red Cell Distribution Width 13.4 % (12.1-15.1); White Blood Count 21.09 10^3/uL (3.29-11.43)
[2024-03-13 06:07] LABS: Anion Gap 18.1 (5-19); Blood Urea Nitrogen 7 mg/dL (6-20); C Reactive Protein 6.4 mg/L (0.0-4.9); Calcium 8.8 mg/dL (8.5-10.5); Carbon Dioxide 18 mmol/L (22-29); Chloride 108 mmol/L (98-107); Creatinine Clr Calc Pharmacy 97.4982; Glomerular Filtration Rate 67.4 mL/min (90-130); Glucose 297 mg/dL (65-115); Magnesium 2.2 mg/dL (1.7-2.3); Osmolality Calculated 299 mOsm/kg (285-295); Potassium 4.1 mmol/L (3.5-5.1); Sodium 140 mmol/L (136-145)
[2024-03-13 08:00] VITALS: BP 144/95; PULSE 119; RESP 16; TEMP 36.6; O2SAT 95
[2024-03-13] MEDS: loratadine 10 mg Tablet PO (08:12)
[2024-03-13] MEDS: montelukast sodium 10 mg Tablet PO (08:12)
[2024-03-13] MEDS: gabapentin 300 mg Capsule 900 MG PO (08:13)
[2024-03-13] MEDS: sennosides-docusate Tablet 1 TAB PO (08:14)
[2024-03-13] MEDS: pantoprazole 40 mg SDV IVP (08:14)
[2024-03-13] MEDS: hydrocortisone 100 mg/2 mL SDV 50 MG IVP (08:15)
[2024-03-13] MEDS: SUMAtriptan 25 mg Tablet 50 MG PO (08:18)
--- NOTE | 2024-03-13 09:38 | PM.DCS ---
Discharge Providers Date of Admission: 03/12/24 18:26 Date of Discharge: March 13, 2024 Attending Provider at Admission: Steph Oneil MD Attending Provider at Discharge: Steph Oneil MD Primary Care Provider: REY Mason Diagnoses at Discharge Discharge Diagnosis (1) Allergy to alpha-gal: Status: Acute (2) Fibromyalgia: Status: Acute (3) Bronchitis due to chemical: Status: Acute Reason for Visit Reason for Visit: ALLERGIC REACTION Hospital Course Hospital Course 48-year female with alpha gal deficiency present to the hospital after being exposed to strong body cologne, she was experiencing multiple bouts of cough, she was diagnosed with bronchitis, received Benadryl and steroids along Xopenex, secondary to use of frequent albuterol dosages she was tremulous and tachycardic, her symptoms improved overnight, she is being discharged with stable hemodynamics, no signs of anaphylaxis, no stridor or wheezing. Physical Exam Narrative: No audible stridor or wheezing Pleasant cough GCS 15 Pleasant cooperative normal vitals Discharge Data Studies Completed and Pending Laboratory Results WBC 21.09 10^3/uL (3.29-11.43) H 03/13/24 05:24 RBC 4.60 10^6/uL (3.85-5.65) 03/13/24 05:24 Hgb 13.10 g/dL (11.27-16.99) 03/13/24 05:24 Hct 40.3 % (36-47) 03/13/24 05:24 MCV 87.6 fl (85-98) 03/13/24 05:24 MCH 28.5 pg (27-33) 03/13/24 05:24 MCHC 32.5 g/dL (30-55) 03/13/24 05:24 RDW 13.4 % (12.1-15.1) 03/13/24 05:24 Plt Count 270 10^3/cmm (157-399) 03/13/24 05:24 MPV 10.3 fL (7.4-10.4) 03/13/24 05:24 Neut % (Auto) 81.9 % 03/13/24 05:24 Lymph % (Auto) 12.5 % 03/13/24 05:24 [place] % (Auto) 4.5 % 10/08/24 05:24 Eos % (Auto) 0.0 % 03/13/24 05:24 Baso % (Auto) 0.2 % 03/13/24 05:24 Neut # (Auto) 17.29 10^3/uL (1.8-7.7) H 03/13/24 05:24 Lymph # (Auto) 2.6 10^3/uL (0.8-4.8) 03/13/24 05:24 [place] # (Auto) 0.9 10^3/uL (0.2-0.9) 03/13/24 05:24 Eos # (Auto) 0.0 10^3/uL (0.0-0.8) 03/13/24 05:24 Baso # (Auto) 0.0 10^3/uL (0.0-0.1) 03/13/24 05:24 Nucleated RBC % (auto) 0 % 03/13/24 05:24 Nucleated RBCs # 0.0 /100WBC 03/13/24 05:24 Sodium 140 mmol/L (136-145) 03/13/24 05:24 Potassium 4.1 mmol/L (3.5-5.1) 03/13/24 05:24 Chloride 108 mmol/L (98-107) H 03/13/24 05:24 Carbon Dioxide 18 mmol/L (22-29) L 03/13/24 05:24 Anion Gap 18.1 (5-19) 03/13/24 05:24 BUN 7 mg/dL (6-20) 03/13/24 05:24 Creatinine 0.9 mg/dL (0.5-0.9) 03/13/24 05:24 GFR Calculation 67.4 mL/min (90-130) L 03/13/24 05:24 Glucose 297 mg/dL (65-115) H 03/13/24 05:24 Calculated Osmolality 299 mOsm/kg (285-295) H 03/13/24 05:24 Calcium 8.8 mg/dL (8.5-10.5) 03/13/24 05:24 Magnesium 2.2 mg/dL (1.7-2.3) 03/13/24 05:24 C-Reactive Protein 6.4 mg/L (0.0-4.9) H 03/13/24 05:24 Vitals Last Vital Signs Temp 97.8 F 03/13/24 08:00 Pulse 119 H 03/13/24 08:00 Resp 16 03/13/24 08:00 BP 144/95 03/13/24 08:00 Pulse Ox 95 03/13/24 08:00 O2 Del Method Room Air 03/13/24 04:00 Discharge Plan Discharge Patient Disposition: Home Condition: Stable Prescriptions: No Action gabapentin 300 mg capsule 300 mg PO TID topiramate 100 mg cap,sprinkle,ER 24hr dose pack 100 mg PO DAILY montelukast [Singulair] 10 mg tablet 10 mg PO DAILY loratadine [Claritin] 10 mg tablet 10 mg PO DAILY omeprazole 20 mg capsule,delayed release(DR/EC) 20 mg PO DAILY rosuvastatin 40 mg tablet 40 mg PO DAILY melatonin 3 mg capsule 6 mg PO BEDTIME propranolol 80 mg capsule,extended release 24 hr 80 mg PO DAILY meloxicam 15 mg tablet 15 mg PO DAILY sumatriptan succinate 50 mg tablet See Rx Instructions PO .COMPLEX Rx Instructions: take 1 tab at onset of headache; if no relief may repeat 1 tab after at least 2 hrs; max = 4 tabs/24 hr PO albuterol sulfate 90 mcg/actuation aerosol powdr breath activated 1 inh inhalation QID PRN (Reason: Shortness Of Breath Or Wheezing) fluticasone propionate [Flonase Allergy Relief] 50 mcg/actuation spray,suspension 1 spray intranasal DAILY PRN (Reason: Allergy Symptoms) Rx Instructions: administer into each nostril cyclobenzaprine 10 mg tablet 10 mg PO TID PRN (Reason: muscle spasm) Mirena 21 mcg/24 hours (8 yrs) 52 mg intrauterine device intrauterine ferrous sulfate 325 mg (65 mg iron) tablet 650 mg PO DAILY PRN (Reason: menstrual cycles) Aimovig Autoinjector 70 mg/mL Auto-Injector 70 mg SUBCUT diclofenac sodium 50 mg Tablet,Delayed Release (Dr/Ec) 50 mg PO Q12H PRN (Reason: Pain) Aimovig Autoinjector IM Discharge Orders: Discharge Order (Routine); Ordered 03/13/24 Ordered By: Steph Oneil Referrals: Kelli Patel FNP [Primary Care Provider] - Patient Instructions: Opioid Safety Discharge Attestations Time Spent in Discharge Care*: less than 30 min Quality Metrics Clinical Quality Measures [ No reported AMI, CVA or VTE this stay] Coding Level of Care Code Acute Code for Chg Fwd Diagnoses Allergy to alpha-gal Z91.018 Fibromyalgia M79.7 Bronchitis due to chemical J68.0
--- NOTE | 2024-03-13 10:21 | PC.NURSE ---
va underwriter was informed the [facility] appointment pcp had avail was 03/26. patient scheduled for that day.
--- NOTE | 2024-03-13 10:26 | PC.CHAP ---
Pastoral Care Encounter/Spiritual Assessment Type of Contact [] Declined photography and prints curator visit [] Patient/Family/Request visit [] Outpatient visit [] Follow-up visit [] Physician referral [] Code/Alert [x] Routine visit [] Staff referral [] Actively dying [] Patient sleeping [] Family support [] [] Out of room [] Palliative care [] [] Receiving care in room [] Pre-surgical visit [] Trauma [] Long length of stay [] ICU visit [] Other: Relational/Emotional Strength [x] Patient feels connected with others/family/visitors/staff [] Distress [] Loneliness/isolation [] Abandonment Spirituality of Patient [x] Person of Zeina [] Attends Jain of their Zeina [] Believes in Prayer [] Reads Bible or Christianity materials [x] There are Spiritual issues to be addressed Ice Cutter Interventions [] Prayer [x] Active listening [x] Non-anxious presence [x] Spiritual/emotional support [] Crisis/trauma care [] Spiritual counseling [] Bereavement support [] Provided bereavement packet [] Provided Bible/devotional materials [] Provided toy/stuffed animal, coloring book to patient or family member [] Provided Communion [] Anointing/Bethany [] Salvation [x] Completed spiritual assessment [] Other: Impact on Illness or Injury [] Angry [] Fearful [] Anxious [] Often cries [] Exhaustion [] Unable to work [] Unable to attend church [] Unable to walk/stand [] Unable to read [] Unable to drive [] Unable to eat/drink [] Unable to sleep [] Unable to be with family [] Patient intubated [] Other: Summary Time spent with patient 10 min
[2024-03-13 13:10] VITALS: BP 144/95; PULSE 119; RESP 16; TEMP 36.6; O2SAT 95
== END 2024-03-13 12:45 | disposition home or self-care (01) ==
LOC: ER 14:41 → MEDSURG 18:26
PROVIDERS: Admitting Provider Internal Medicine; Emergency Provider Family Medicine; PCP Nurse Practitioner; Visit Provider Internal Medicine
DX: J68.0 Bronchitis and pneumonitis due to chemicals, gases, fumes and vapors (principal); M79.7 Fibromyalgia; Z91.014 Allergy to mammalian meats; Z99.81 Dependence on supplemental oxygen
CPT/HCPCS: 36415; 80048; 83735; 85025; 86140; 94640; 96372; 96374; 96375; 96376; 99285; G0378; J1200; J1650; J1720; J2470; J7614

== ENCOUNTER 2024-04-24 12:57 | Outpatient (RCR) | payer OTHER, SELFPAY | END 2024-05-05 23:59 | disposition home or self-care (01) | LOC: SPT 12:57 | PROVIDERS: Visit Provider Nurse Practitioner | DX: N39.3 Stress incontinence (female) (male) (principal) | CPT/HCPCS: 97161; 97530 ==

== ENCOUNTER 2024-05-06 06:00 | Outpatient (RCR) | payer OTHER, SELFPAY | END 2024-06-05 23:59 | disposition home or self-care (01) | LOC: SPT 06:00 | PROVIDERS: Visit Provider Nurse Practitioner | DX: N39.3 Stress incontinence (female) (male) (principal) | CPT/HCPCS: 97110; 97530 ==

== ENCOUNTER → 2024-07-05 08:04 | Outpatient (BNVA) | payer OTHER, SELFPAY | PROVIDERS: Referring Provider Nurse Practitioner; Visit Provider Nurse Practitioner Family | DX: L82.1 Other seborrheic keratosis (principal); D23.62 Other benign neoplasm of skin of left upper limb, including shoulder; L73.8 Other specified follicular disorders; L57.0 Actinic keratosis | CPT/HCPCS: 17000; 99203 ==

== ENCOUNTER 2024-07-07 05:25 | Outpatient (RCR) | payer OTHER, SELFPAY | END 2024-08-03 23:59 | disposition home or self-care (01) | LOC: SPT 05:25 | PROVIDERS: Visit Provider Nurse Practitioner | DX: N39.3 Stress incontinence (female) (male) (principal); K59.00 Constipation, unspecified; N81.89 Other female genital prolapse | CPT/HCPCS: 97110; 97530 ==

== ENCOUNTER → 2024-07-11 14:00 | Outpatient (BNVA) | payer OTHER, SELFPAY | PROVIDERS: PCP Nurse Practitioner; Visit Provider Surgery | DX: Z12.11 Encounter for screening for malignant neoplasm of colon (principal) | CPT/HCPCS: 99204 ==

== ENCOUNTER 2024-08-04 06:30 | Outpatient (RCR) | payer OTHER, SELFPAY | END 2024-08-13 06:50 | disposition home or self-care (01) | LOC: SPT 06:30 | PROVIDERS: PCP Nurse Practitioner; Visit Provider Nurse Practitioner | DX: N39.3 Stress incontinence (female) (male) (principal); K59.00 Constipation, unspecified; N81.89 Other female genital prolapse | CPT/HCPCS: 97110; 97530 ==

== ENCOUNTER → 2024-10-01 14:03 | Outpatient (BNVA) | payer OTHER, SELFPAY | PROVIDERS: PCP Nurse Practitioner; Visit Provider Nurse Practitioner Family | DX: D23.62 Other benign neoplasm of skin of left upper limb, including shoulder (principal) | CPT/HCPCS: 99213 ==

== ENCOUNTER 2025-04-03 11:04 | Outpatient (CLI) | payer OTHER, SELFPAY ==
--- NOTE | 2025-04-03 11:20 | MM_ITS ---
WS: [id number] BILATERAL SCREENING DIGITAL TOMOSYNTHESIS MAMMOGRAM WITH CAD HISTORY: SCREENING COMPARISON: 01/17/2024, 10/21/2022, 12/02/2020 Bilateral CC and MLO views with tomosynthesis and synthetic mammography submitted. Computer aided detection analyzed. Breast composition: There are scattered areas of fibroglandular density. No suspicious masses, microcalcifications or architectural distortion. Long-term stability lobulated mass measuring 6 x 4 x 5 mm in the medial LEFT breast. No additional masses or suspicious grouping of calcifications. MM/MM [facility] tomosynthesis [id number] IMPRESSION: BI-RADS: 2 - Benign. FOLLOW UP: 1 Year Follow-up
== END 2025-04-03 11:05 | disposition home or self-care (01) ==
LOC: RAD 11:07
PROVIDERS: PCP Nurse Practitioner; Visit Provider Nurse Practitioner
DX: Z12.31 Encounter for screening mammogram for malignant neoplasm of breast (principal); R92.323 Mammographic fibroglandular density, bilateral breasts; N63.20 Unspecified lump in the left breast, unspecified quadrant
CPT/HCPCS: 77063; 77067

== ENCOUNTER → 2025-04-15 08:43 | Outpatient (BNVA) | payer OTHER, SELFPAY | PROVIDERS: PCP Nurse Practitioner; Visit Provider Surgery | DX: Z12.11 Encounter for screening for malignant neoplasm of colon (principal); R03.0 Elevated blood-pressure reading, without diagnosis of hypertension | CPT/HCPCS: 99214 ==

== ENCOUNTER 2025-04-25 08:04 | Day surgery (SDC) | payer OTHER, SELFPAY ==
[2025-04-25 08:22] VITALS: BP 156/109; PULSE 94; RESP 18; TEMP 36.1; O2SAT 96
[2025-04-25 08:31] VITALS: BMI 33.4
--- NOTE | 2025-04-25 09:09 | P.HPUD_ITS ---
Surgery/Procedure H&P Update DATE OF PROCEDURE: April 25, 2025 DATE H&P PERFORMED: 04/15/25 H&P UPDATE INFORMATION: I have reviewed H&P completed within last 30 days, I have examined patient prior to procedure, No changes to prior documentation, H&P is in [facility] EMR on date indicated and Risks and benefits of the procedure reviewed PLANNED PROCEDURE: Operation Date: 04/25/25 09:40 Proposed Procedures p EGD EGD with Biopsy [id number] G0105 Z12.11 K21.9(Not Applicable) - Fernando Solorio MD s Colonoscopy(Not Applicable) - Fernando Solorio MD
--- NOTE | 2025-04-25 09:10 | ANES.PREANE2 ---
Pre-Anesthetic Assessment Height/Weight: Height 1.73 m Weight 99.79 kg Temp Pulse Resp BP Pulse Ox O2 Del Method 97.0 F L 94 18 156/109 96 Room Air 04/25/25 08:22 04/25/25 08:22 04/25/25 08:22 04/25/25 08:22 04/25/25 08:22 04/25/25 08:22 Preop Diagnosis: GERD, Screening Operation Date: 04/25/25 09:40 Proposed Procedures p EGD EGD with Biopsy [id number] G0105 Z12.11 K21.9(Not Applicable) - Fernando Solorio MD s Colonoscopy(Not Applicable) - Fernando Solorio MD Was Beta Josie taken within 24 hours: Yes Was Clonidine taken within 24 hours: N/A Last intake: Intake Last Liquid Date 04/25/25 Last Liquid Time 00:40 Last Solid Date 04/23/25 Last Solid Time 21:00 Social Alcohol and No tobacco marijuana, quit cigarrettes 6 years ago. Albuterol inhaler x2 puf Exam alert, oriented x 3, clear to auscultation bilaterally and regular rate & rhythm Airway Cervical ROM: within normal limits Mallampati: Class III Dentition: full Pulmonary Asthma CV/HEM Anemia and None reported None reported Hepatic None reported GI Gastroesophageal Reflux Disease Metabolic Diabetes Mellitus and Morbid Obesity Musc/skel Fibromyalgia and Lower Back Pain Neuropsych None reported Anesthetic Plan ASA status: 3 Anesthesia: MAC Risk of > 500 ml blood loss (7ml/kg in children): No Medications/Allergies Home Medications ?Medication ?Instructions ?Recorded ?Confirmed ?Last Taken ?Type albuterol sulfate 90 mcg/actuation 1 inh inhalation QID PRN Shortness 04/17/21 04/25/25 1 Week Ago History breath activated powder inhaler Of Breath Or Wheezing ~04/15/25 fluticasone propionate 50 1 spray intranasal DAILY PRN 04/17/21 04/25/25 04/21/25 History mcg/actuation nasal Allergy Symptoms spray,suspension (Flonase Allergy Relief) gabapentin 300 mg capsule 300 mg PO TID 04/17/21 04/25/25 04/24/25 History loratadine 10 mg tablet (Claritin) 10 mg PO DAILY 04/17/21 04/25/25 04/24/25 History meloxicam 15 mg tablet 15 mg PO DAILY 04/17/21 04/25/25 04/17/25 History montelukast 10 mg tablet 10 mg PO DAILY 04/17/21 04/25/25 04/24/25 History (Singulair) propranolol 80 mg capsule,24 80 mg PO DAILY 04/17/21 04/25/25 04/24/25 History hr,extended release sumatriptan succinate 50 mg tablet See Rx Instructions PO .COMPLEX 04/17/21 04/25/25 04/19/25 History cyclobenzaprine 10 mg tablet 10 mg PO TID PRN muscle spasm 12/03/21 04/25/25 04/24/25 History diclofenac sodium 50 mg 50 mg PO Q12H PRN Pain 02/10/23 04/25/25 1 Week Ago History tablet,delayed release ~04/18/25 levonorgestrel (Mirena) 1 device intrauterine .Q8Y 09/27/23 04/25/25 08/18/23 History erenumab-aooe 70 mg/mL 70 mg SUBCUT .MONTHLY 03/13/24 04/25/25 Unknown History subcutaneous auto-injector (Aimovig Autoinjector) guaifenesin 600 mg tablet, 600 mg PO BID PRN congestion #30 03/13/24 04/25/25 1 Week Ago Rx extended release 12 hr (Mucinex) tabs ~04/15/25 topiramate 100 mg tablet 100 mg PO DAILY 03/13/24 04/25/25 04/24/25 History fenofibrate nanocrystallized 145 145 mg PO DAILY 07/11/24 04/25/25 04/23/25 History mg tablet metformin 500 mg tablet 500 mg PO BEDTIME 07/11/24 04/25/25 04/23/25 History mirtazapine 15 mg tablet 15 mg PO DAILY 07/11/24 04/25/25 04/24/25 History omeprazole 20 mg capsule,delayed 20 mg PO BID 07/11/24 04/25/25 04/24/25 History release cholecalciferol (vitamin D3) 10 10 mcg PO DAILY 04/15/25 04/25/25 04/21/25 History mcg (400 unit) capsule biotin 10,000 mcg capsule 10,000 mcg PO DAILY 04/22/25 04/25/25 04/24/25 History cyanocobalamin (vitamin B-12) 1,000 mcg PO DAILY 04/22/25 04/25/25 04/21/25 History 1,000 mcg tablet magnesium oxide 400 mg PO DAILY 04/22/25 04/25/25 04/21/25 History Allergies Allergy/AdvReac Type Severity Reaction Status Date / Time adhesive Allergy Intermediate Unknown Verified 04/25/25 08:23 Alpha-Gal Allergy ADR-Chest Verified 04/25/25 08:23 (Jmvutqsfq-Olhci-5,3-Gala Pain Current Medications Generic Name Dose Route Start Last Admin Trade Name Freq PRN Reason Stop Dose Admin Sodium Chloride 1,000 mls @ 15 mls/hr 04/25/25 08:08 04/25/25 08:32 Sodium Chloride 0.9% IV 04/26/25 08:07 15 mls/hr .Q24H PRN Administration COLONOSCOPY FLUIDS PFSH Anesthesia Medical History Bronchitis due to chemical Allergy to alpha-gal Anemia Asthma Fibromyalgia Costochondritis Surgical History History of cardiac radiofrequency ablation (RFA) Family History Sister Hypercholesteremia Hypertension Diabetes Mother Diabetes Other Stroke Denies family history of Colon cancer Ovarian cancer Heart disease Breast cancer Suicide Uterine cancer Thyroid disease Social History Smoking and tobacco/nicotine status: former use of tobacco/nicotine
[2025-04-25 09:12] LABS: OR HCG Qualitative Urine Negative (Negative)
[2025-04-25 10:15] VITALS: BP 140/92; PULSE 71; RESP 16; TEMP 36.3; O2SAT 99
[2025-04-25 10:30] VITALS: BP 143/93; PULSE 69; RESP 16; O2SAT 99
--- NOTE | 2025-04-25 10:57 | ANE.PACU2 ---
Inpatient post-anesthesia follow up: Airway intact: Yes Vital signs: Temperature 97.4 F Pulse Rate 69 Respiratory Rate 16 Blood Pressure 143/93 Pulse Oximetry 99 Oxygen Delivery Me thod Room Air Oxygen Flow Rate Fraction of Inspir ed Oxygen Hydration adequate: Yes Nausea and vomiting: No Pain level: 1 Mental status: Baseline
== END 2025-04-25 10:57 | disposition home or self-care (01) ==
PROVIDERS: Student in an Organized Health Care Education/Training Program; PCP Nurse Practitioner; Visit Provider Surgery
PROC: 0DJ08ZZ Inspection of Upper Intestinal Tract, Via Natural or Artificial Opening Endoscopic (ICD-10-PCS; principal; 2025-04-25 09:40)
PROC: 0DJD8ZZ Inspection of Lower Intestinal Tract, Via Natural or Artificial Opening Endoscopic (ICD-10-PCS; CPT 45378; 2025-04-25 09:40)
DX: Z12.11 Encounter for screening for malignant neoplasm of colon (principal); D12.8 Benign neoplasm of rectum; K21.9 Gastro-esophageal reflux disease without esophagitis; K29.70 Gastritis, unspecified, without bleeding; E11.9 Type 2 diabetes mellitus without complications; E66.01 Morbid (severe) obesity due to excess calories; Z68.33 Body mass index [BMI] 33.0-33.9, adult; M79.7 Fibromyalgia; Z79.84 Long term (current) use of oral hypoglycemic drugs; Z91.014 Allergy to mammalian meats; Z87.891 Personal history of nicotine dependence
CPT/HCPCS: 36416; 43239; 45380; 81025; 82962; 88305; J7030

== ENCOUNTER → 2025-05-08 08:35 | Outpatient (BNVA) | payer OTHER, SELFPAY | PROVIDERS: PCP Nurse Practitioner; Visit Provider Surgery | DX: Z51.89 Encounter for other specified aftercare (principal); R03.0 Elevated blood-pressure reading, without diagnosis of hypertension | CPT/HCPCS: 99213 ==

== ENCOUNTER 2025-05-14 08:30 | Outpatient (CLI) | payer OTHER, SELFPAY ==
--- NOTE | 2025-05-14 08:30 | US_ITS ---
WS: [id number] RIGHT UPPER QUADRANT ULTRASOUND HISTORY: symptomatic cholelithiasis COMPARISON: None available. Liver: 16.5 cm in length. Liver is top normal size. Moderate increased attenuation and coarsening of the liver from hepatic steatosis. No mass identified. Focal fatty sparing adjacent to the gallbladder. No intrahepatic duct dilatation. Portal Vein: Normal hepatopetal flow with monophasic waveform. Gallbladder: Normally distended gallbladder with no stones or wall thickening. CBD: 0.3 cm Pancreas: Echogenic pancreas. Right kidney: 9.6 cm in length. Normal size kidney. There is a cortical cyst measuring 5.7 x 5.5 x 6.0 cm from the lower pole. No solid mass or renal obstruction. Aorta and IVC: Limited. No ascites. US/US gall bladder [id number] IMPRESSION: 1. Negative gallbladder. No cholelithiasis identified. 2. Normal common bile duct. 3. Moderate hepatic steatosis with focal area of sparing adjacent to the gallb ladder fossa. 4. Echogenic pancreas from fatty replacement.
== END 2025-05-14 08:31 | disposition home or self-care (01) ==
LOC: RAD 08:31
PROVIDERS: PCP Nurse Practitioner; Visit Provider Surgery
DX: K80.20 Calculus of gallbladder without cholecystitis without obstruction (principal); K76.0 Fatty (change of) liver, not elsewhere classified; K86.89 Other specified diseases of pancreas
CPT/HCPCS: 76705

== ENCOUNTER 2025-05-17 07:58 | Outpatient (CLI) | payer OTHER, SELFPAY ==
--- NOTE | 2025-05-17 08:00 | NM_ITS ---
WS: [id number] NUCLEAR MEDICINE HIDA SCAN WITH GALLBLADDER EJECTION FRACTION HISTORY: symptomatic cholelithiasis COMPARISON: Gallbladder ultrasound 05/14/2025 TECHNIQUE: The patient was intravenously injected with 7.6 mCi of TC99m Mebrofenin. Immediate imaging over the right upper quadrant was followed by 5 minute image and additional images for a total of 60 minutes. Normal uptake of radiotracer throughout the liver. Activity identified in the gallbladder at 10 minutes and well distended by 60 minutes. Activity in the proximal small bowel was seen by 60 minutes. Good washout of the radiotracer from the liver by 60 minutes. The patient then drank 8 ounces of Ensure Plus. Ejection fraction at 60 minutes was 92%. Normal GB ejection fraction is 35-75%. Post fatty meal symptoms: None. NM/NM hepatobiliary w phar* [id number] IMPRESSION: 1. Normal HIDA scan. 2. Normal gallbladder ejection fraction.
== END 2025-05-17 07:59 | disposition home or self-care (01) ==
LOC: RAD 07:59
PROVIDERS: PCP Nurse Practitioner; Visit Provider Surgery
DX: K80.20 Calculus of gallbladder without cholecystitis without obstruction (principal)
CPT/HCPCS: 78227; A9537

== ENCOUNTER → 2025-05-22 09:02 | Outpatient (BNVA) | payer OTHER, SELFPAY | PROVIDERS: PCP Nurse Practitioner; Visit Provider Surgery | DX: Z51.89 Encounter for other specified aftercare (principal) | CPT/HCPCS: 99213 ==